=== PATIENT | male | born 1970 | race Caucasian/White ===

== ENCOUNTER 2020-01-26 17:17 | Inpatient (IN) | payer MEDICAID, OTHER ==
[2020-01-26 18:13] LABS: CARBON DIOXIDE,CO2 7.1 mmol/L (21.0-32.0)
--- NOTE | 2020-01-26 18:13 | EDM.PDOC ---
ED HPI GENERAL MEDICAL PROBLEM - General Chief Complaint: Abdominal Pain Stated Complaint: STOMACH Time Seen by Provider: 01/26/20 17:30 Source of Information: Reports: Patient History Limitations: Reports: No Limitations - History of Present Illness INITIAL COMMENTS - FREE TEXT/NARRATIVE: Notes to the emergency room with a complaint of abdominal pain for 2 months. Patient states the only reason he came in today was because his made him. The patient states that he drinks about 3 drinks of alcohol per day--hard liquor. However, according to his , the 3 drinks are 1/2 L of alcohol daily for the last 9 to 10 years. She is concerned because he is having ankle and foot swelling, yellow eyes, vomiting, sometimes blood in the vomit, no appetite and constant complaints of abdominal pain. The patient states that his only complaint is the abdominal pain and no appetite. He states he had a brown formed stool today and does so on a daily basis. No fever, dysuria, wheezing or shortness of breath. He is breathing fast on admission but he and his state that he has asthma and his flares are characterized by rapid breathing as opposed to wheezing and shortness of breath. He states he has lost about 25 pounds. 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 Abdomen Pain Score (Numeric/FACES): 5 - Related Data Allergies Allergy/AdvReac Type Severity Reaction Status Date / Time No Known Allergies Allergy Verified 01/26/20 17:35 Home Meds: Home Meds Albuterol/Ipratropium [Combivent Respimat] 4 gm IH ASDIRECTED 01/26/20 [History] Fluticasone Propion/Salmeterol [Advair 250-50 Diskus] 1 each IH ASDIRECTED 01/26/20 [History] Past Medical History HEENT History: Reports: None Cardiovascular History: Reports: None Respiratory History: Reports: Asthma Gastrointestinal History: Reports: None Genitourinary History: Reports: None Musculoskeletal History: Reports: None Neurological History: Reports: None Psychiatric History: Reports: None Endocrine/Metabolic History: Reports: None Hematologic History: Reports: None Immunologic History: Reports: None Oncologic (Cancer) History: Reports: None Dermatologic History: Reports: None - Infectious Disease History Infectious Disease History: Reports: Chicken Pox - Past Surgical History Head Surgeries/Procedures: Reports: None Social & Family History - Tobacco Use Smoking Status *Q: Never Smoker - Recreational Drug Use Recreational Drug Use: No ED ROS GENERAL - Review of Systems Review Of Systems: Comprehensive ROS is negative, except as noted in HPI. ED EXAM, GI/ABD - Physical Exam Exam: See Below Exam Limited By: No Limitations General Appearance: Alert, No Apparent Distress, Other (mild scleral icterus ) Ears: Normal External Exam Nose: Normal Inspection Throat/Mouth: Normal Inspection Head: Atraumatic, Normocephalic Neck: Normal Inspection Respiratory/Chest: No Respiratory Distress, Lungs Clear, Normal Breath Sounds, Other (tachypnea) Cardiovascular: Normal Peripheral Pulses, Regular Rate, Rhythm, No Murmur GI/Abdominal Exam: Soft, Non-Tender, Other (hypoactive BS, obese) Back Exam: Normal Inspection Neurological: Alert, Oriented, Normal Cognition Psychiatric: Normal Affect, Normal Mood Skin Exam: Warm, Dry, Intact, Normal Color, No Rash Lymphatic: No Adenopathy Course - Vital Signs Last Recorded V/S: Last Vital Signs Temp 36.4 C 01/26/20 17:32 Pulse 115 H 01/26/20 18:54 Resp 20 01/26/20 18:54 BP 120/102 H 01/26/20 18:54 Pulse Ox 97 01/26/20 18:54 - Orders/Labs/Meds Orders: Active Orders 24 hr Category Date Time Status RT Aerosol Therapy [RC] ASDIRECTED Care 01/26/20 18:28 Ordered CORONAVIRUS COVID-19 PCR PHL Stat Lab 01/26/20 19:01 Ordered ETOH [ETHANOL BLOOD MEDICAL] [CHEM] Stat Lab 01/26/20 19:01 Ordered Labs: Laboratory Tests 01/26/20 01/26/20 01/26/20 Range/Units 15:40 17:40 17:40 WBC 6.24 (4.0-11.0) K/uL RBC 4.07 L (4.50-5.90) M/uL Hgb 14.2 (13.0-17.0) g/dL Hct 42.1 (38.0-50.0) % MCV 103.4 H (80.0-98.0) fL MCH 34.9 H (27.0-32.0) pg MCHC 33.7 (31.0-37.0) g/dL RDW Std Deviation 53.7 (28.0-62.0) fl RDW Coeff of Nicholas 14 (11.0-15.0) % Plt Count 133 L (150-400) K/uL MPV 11.00 (7.40-12.00) fL Neut % (Auto) 79.4 (48.0-80.0) % Lymph % (Auto) 8.2 L (16.0-40.0) % Sheridan % (Auto) 12.0 (0.0-15.0) % Eos % (Auto) 0.2 (0.0-7.0) % Baso % (Auto) 0.2 (0.0-1.5) % Neut # (Auto) 5.0 (1.4-5.7) K/uL Lymph # (Auto) 0.5 L (0.6-2.4) K/uL Sheridan # (Auto) 0.8 (0.0-0.8) K/uL Eos # (Auto) 0.0 (0.0-0.7) K/uL Baso # (Auto) 0.0 (0.0-0.1) K/uL Nucleated RBC % 0.6 /100WBC Nucleated RBCs # 0 K/uL INR 1.13 Sodium (136-148) mmol/L Potassium (3.5-5.1) mmol/L Chloride (98-107) mmol/L Carbon Dioxide (21.0-32.0) mmol/L BUN (7.0-18.0) mg/dL Creatinine (0.8-1.3) mg/dL Est Cr Clr Drug Dosing mL/min Estimated GFR (MDRD) ml/min Glucose (74-106) mg/dL Calcium (8.5-10.1) mg/dL Total Bilirubin (0.2-1.0) mg/dL AST (15-37) IU/L ALT (14-63) IU/L Alkaline Phosphatase (46-116) U/L Total Protein (6.4-8.2) g/dL Albumin (3.4-5.0) g/dL Globulin (2.6-4.0) g/dL Albumin/Globulin Ratio (0.9-1.6) Amylase 84 (25-115) U/L Lipase (73-393) U/L 01/26/20 Range/Units 17:40 WBC (4.0-11.0) K/uL RBC (4.50-5.90) M/uL Hgb (13.0-17.0) g/dL Hct (38.0-50.0) % MCV (80.0-98.0) fL MCH (27.0-32.0) pg MCHC (31.0-37.0) g/dL RDW Std Deviation (28.0-62.0) fl RDW Coeff of Nicholas (11.0-15.0) % Plt Count (150-400) K/uL MPV (7.40-12.00) fL Neut % (Auto) (48.0-80.0) % Lymph % (Auto) (16.0-40.0) % Sheridan % (Auto) (0.0-15.0) % Eos % (Auto) (0.0-7.0) % Baso % (Auto) (0.0-1.5) % Neut # (Auto) (1.4-5.7) K/uL Lymph # (Auto) (0.6-2.4) K/uL Sheridan # (Auto) (0.0-0.8) K/uL Eos # (Auto) (0.0-0.7) K/uL Baso # (Auto) (0.0-0.1) K/uL Nucleated RBC % /100WBC Nucleated RBCs # K/uL INR Sodium 124 L (136-148) mmol/L Potassium 5.5 H (3.5-5.1) mmol/L Chloride 84 L (98-107) mmol/L Carbon Dioxide 7.1 L (21.0-32.0) mmol/L BUN 20 H (7.0-18.0) mg/dL Creatinine 2.1 H (0.8-1.3) mg/dL Est Cr Clr Drug Dosing 49.47 mL/min Estimated GFR (MDRD) 33.7 ml/min Glucose 73 L (74-106) mg/dL Calcium 7.7 L (8.5-10.1) mg/dL Total Bilirubin 4.5 H (0.2-1.0) mg/dL AST 1812 H (15-37) IU/L ALT 273 H (14-63) IU/L Alkaline Phosphatase 117 H (46-116) U/L Total Protein 7.8 (6.4-8.2) g/dL Albumin 3.7 (3.4-5.0) g/dL Globulin 4.1 H (2.6-4.0) g/dL Albumin/Globulin Ratio 0.9 (0.9-1.6) Amylase (25-115) U/L Lipase 788 H (73-393) U/L Meds: Medications Discontinued Medications Generic Name Dose Route Start Last Admin Trade Name Rosendo PRN Reason Stop Dose Admin Albuterol/Ipratropium 3 ml 01/26/20 18:28 01/26/20 18:42 Duoneb 3.0-0.5 Mg/3 Ml NEB 01/26/20 18:29 3 ml ONETIME ONE Administration Dextrose/Water 50 ml 01/26/20 19:02 Dextrose 50% In Water IVPUSH 01/26/20 19:03 ONETIME ONE Insulin Human Regular 10 unit 01/26/20 18:59 Novolin R IVPUSH 01/26/20 19:00 ONETIME ONE Protocol Sodium Bicarbonate 50 meq 01/26/20 19:02 Sodium Bicarbonate 8.4% IVPUSH 01/26/20 19:03 ONETIME ONE - Re-Assessments/Exams Free Text/Narrative Re-Assessment/Exam: 01/26/20 19:[address] Debbie Chacon. Will treat hyperkalemia and admit to inpatient services. Free Text/Narrative Re-Assessment/Exam: 01/26/20 19:[address] Irving, hospitalist service. Same will refer patient to observation with telemetry. Last alcoholic drink 0200 per patient. Departure - Departure Time of Disposition: 19:17 Disposition: Refer to Observation Condition: Good Clinical Impression: Hyperkalemia - Discharge Information Referrals: Fernanda Haskins ORTHOTIC ASSISTANT [Primary Care Provider] - Forms: ED Department Discharge Sepsis Event Note (ED) - Evaluation Sepsis Screening Result: No Definite Risk - Focused Exam Vital Signs: Vital Signs Temp Pulse Resp BP Pulse Ox 01/26/20 18:54 115 H 20 120/102 H 97 01/26/20 17:32 36.4 C 119 H 22 H 121/79 96 - My Orders Last 24 Hours: My Active Orders 01/26/20 18:28 RT Aerosol Therapy [RC] ASDIRECTED 01/26/20 19:01 CORONAVIRUS COVID-19 PCR PHL Stat ETOH [ETHANOL BLOOD MEDICAL] [CHEM] Stat - Assessment/Plan Last 24 Hours: My Active Orders 01/26/20 18:28 RT Aerosol Therapy [RC] ASDIRECTED 01/26/20 19:01 CORONAVIRUS COVID-19 PCR PHL Stat ETOH [ETHANOL BLOOD MEDICAL] [CHEM] Stat
[2020-01-26 18:27] LABS: POTASSIUM,K 5.5 mmol/L (3.5-5.1)
[2020-01-26] MEDS ORDERED: Albuterol/Ipratropium 3.0-0.5 MG/3 ML Neb Soln NEB ONE (18:28)
--- NOTE | 2020-01-26 18:32 | CT ---
Abdomen and pelvis Technique: Multiple axial sections were obtained from above the dome of the diaphragm inferiorly through the pubic symphysis. Intravenous and oral contrast has not been given. Comparison: No prior abdominal imaging is available. Findings: Visualized lung bases shows a focal density within the left base appearing slightly masslike measuring 2.1 cm. Uncertain if this is due to nodular pleural thickening or represents actual neoplastic mass. Focal density seen within the right paraspinal region most likely relating to scarring. Other parenchymal densities are seen most likely relating to scarring. Liver shows very severe fatty infiltration with mild enlargement. Small hiatal hernia is noted. Spleen appears normal. Adrenal glands show no nodule. Kidneys show no abnormal calcifications. Small high density lesion is noted off the posterior right kidney measuring 8 mm. This is statistically most likely representing hemorrhagic cyst. Pancreas shows no abnormality. Gallbladder contains no calcified gallstones. Aorta shows atherosclerotic calcification without aneurysm. No retroperitoneal adenopathy or mesenteric abnormalities are seen. No pelvic mass or adenopathy is seen. No free fluid or is appreciated. Appendix is felt to be visualized and is normal in size. Questionable bowel wall thickening is seen within portions of the transverse colon and descending colon as well as right colon. Diverticuli are seen within more distal portions of the descending colon as well as mild sigmoid diverticulosis. No evidence of diverticulitis is seen. Slight inflammatory change is seen off the cecum, uncertain if this is acute or old. No etiology is seen if this is acute. Bone window settings were reviewed which shows slight scoliosis and mild scattered degenerative change within the spine. No acute osseous finding is appreciated. Impression: 1. Mild bowel wall thickening suggested within portions of the descending, transverse and right colon suspicious for colitis. 2. Minimal inflammatory change off the cecum. No etiology is seen if this is acute and this may be chronic. 3. Severe fatty infiltration within the liver. 4. Nodular density within the left lung base, as mentioned above uncertain if this is due to nodular area of parenchymal scarring or represents actual neoplastic nodule. PET scan would be helpful to differentiate. 5. Other findings as noted above which are believed to be nonacute. Diagnostic code #3 This report was dictated in MDT
--- NOTE | 2020-01-26 18:53 | CR ---
Chest: 2 views of the chest were obtained. Comparison: No prior chest imaging is available. Heart size at the upper limits of normal. Upper mediastinum is normal. Slight parenchymal density with the left base. This may represent atelectasis or very early pneumonia. Lungs otherwise are clear. Slight degenerative change is seen within the spine. Impression: 1. Mild left basilar atelectasis versus minimal area of pneumonia. 2. Heart size at the upper limits of normal. 3. Nothing acute is otherwise seen. Diagnostic code #3 This report was dictated in MDT
[2020-01-26] MEDS ORDERED: Insulin Regular, Human 100 Units/ML 10 ML Vial IVPUSH ONE (18:59)
[2020-01-26] MEDS ORDERED: 50% Dextrose in Water 50 ML Syringe IVPUSH ONE (19:02)
[2020-01-26] MEDS ORDERED: Sodium Bicarbonate 8.4% 50 MEQ/50 ML Syringe IVPUSH ONE (19:02)
[2020-01-26] MEDS ORDERED: Morphine 10 MG/ML Syringe IVPUSH PRN (19:21)
[2020-01-26] MEDS ORDERED: Ondansetron 4 MG/2 ML SDV IVPUSH PRN (19:21)
[2020-01-26] MEDS ORDERED: MVI, Adult with Vitamin K 10 ML, Thiamine 100 MG, Folic Acid 1 MG in Sodium Chloride 0.... IV ONE ×4 (19:32)
--- NOTE | 2020-01-26 19:38 | PCM.HP.2 ---
H&P History of Present Illness - General Date of Service: 01/26/20 Admit Problem/Dx: Admission Diagnosis/Problem Admission Diagnosis/Problem Hyperkalemia - History of Present Illness Initial Comments - Free Text/Narative: 49 y/o M with PMH of alcohol abuse, asthma, comes to the emergency room with a complaint of chronic abdominal pain for 2 months. Patient states that he came in today because his insisted him to.. The patient states that he drinks about 3 drinks of alcohol per day which is mostly hard liquor. However, according to his , the 3 drinks are 1/2 L of alcohol daily for the last 9 to 10 years. Per patient is having ankle and foot swelling, yellow eyes, vomiting, sometimes blood in the vomit, no appetite and constant complaints of abdominal pain. The patient states that his only complaint is the abdominal pain and no appetite. He states he had a brown formed stool today and does so on a daily basis. No fever, dysuria, wheezing or shortness of breath. Denied any chest pain, n/v, syncope. In the ER his labs were significant for liver dysfunction, also creatinine was elevated 2.1, Potassium was 5.5, patient received 10 units of subCut insulin and dextrose, CT abdomen showed severe fatty liver, no gallstones. Patient was admitted for acute alcoholic hepatitis and alc ohol detox. Abdomen Pain Score (Numeric/FACES): 5 - Related Data Allergies/Adverse Reactions: Allergies Allergy/AdvReac Type Severity Reaction Status Date / Time No Known Allergies Allergy Verified 01/26/20 17:35 Home Medications: Home Meds Albuterol/Ipratropium [Combivent Respimat] 4 gm IH ASDIRECTED 01/26/20 [History] Fluticasone Propion/Salmeterol [Advair 250-50 Diskus] 1 each IH ASDIRECTED 01/26/20 [History] Past Medical History HEENT History: Reports: None Cardiovascular History: Reports: None Respiratory History: Reports: Asthma Gastrointestinal History: Reports: None Genitourinary History: Reports: None Musculoskeletal History: Reports: None Neurological History: Reports: None Psychiatric History: Reports: None Endocrine/Metabolic History: Reports: None Hematologic History: Reports: None Immunologic History: Reports: None Oncologic (Cancer) History: Reports: None Dermatologic History: Reports: None - Infectious Disease History Infectious Disease History: Reports: Chicken Pox - Past Surgical History Head Surgeries/Procedures: Reports: None Social & Family History - Tobacco Use Smoking Status *Q: Never Smoker - Recreational Drug Use Recreational Drug Use: No H&P Review of Systems - Review of Systems: Review Of Systems: See Below General: Reports: Malaise, Fatigue. Denies: Fever, Chills HEENT: Denies: Contact Lenses, Dysphasia Gastrointestinal: Reports: Abdominal Pain, Anorexia, Black Stool, Flatus, Nausea, Vomiting. Denies: Bloody Stool, Constipation, Diarrhea, Difficulty Swallowing, Hematemesis, Stool Incontinence Genitourinary: Denies: Burning, Pain Musculoskeletal: Denies: Arm Pain, Back Pain, Hand Pain Skin: Reports: Jaundice. Denies: Mottled, Pallor, Diaphoresis Psychiatric: Denies: Depression, Mood Lability, Anxiety Neurological: Denies: Dizziness, Headache, Numbness Exam - Exam Exam: See Below - Vital Signs Vital Signs: Last Vital Signs Temp 36.4 C 01/26/20 17:32 Pulse 110 H 01/26/20 19:13 Resp 20 01/26/20 18:54 BP 118/80 01/26/20 19:13 Pulse Ox 97 01/26/20 19:13 Weight: 106.8 kg - Exam Quality Assessment: Supplemental Oxygen General: Alert, Oriented HEENT: Conjunctiva Clear, Scleral Icterus Neck: Supple Lungs: Clear to Auscultation, Normal Respiratory Effort Cardiovascular: Regular Rate, Regular Rhythm, Normal S1, Normal S2 GI/Abdominal Exam: Normal Bowel Sounds, Soft, Distended, Hepatomegaly. No: Guarding, Rigid - Patient Data Lab Results Last 24 hrs: Laboratory Results - last 24 hr 01/26/20 01/26/20 01/26/20 Range/Units 15:40 17:40 17:40 WBC 6.24 (4.0-11.0) K/uL RBC 4.07 L (4.50-5.90) M/uL Hgb 14.2 (13.0-17.0) g/dL Hct 42.1 (38.0-50.0) % MCV 103.4 H (80.0-98.0) fL MCH 34.9 H (27.0-32.0) pg MCHC 33.7 (31.0-37.0) g/dL RDW Std Deviation 53.7 (28.0-62.0) fl RDW Coeff of Nicholas 14 (11.0-15.0) % Plt Count 133 L (150-400) K/uL MPV 11.00 (7.40-12.00) fL Neut % (Auto) 79.4 (48.0-80.0) % Lymph % (Auto) 8.2 L (16.0-40.0) % Taylor % (Auto) 12.0 (0.0-15.0) % Eos % (Auto) 0.2 (0.0-7.0) % Baso % (Auto) 0.2 (0.0-1.5) % Neut # (Auto) 5.0 (1.4-5.7) K/uL Lymph # (Auto) 0.5 L (0.6-2.4) K/uL Taylor # (Auto) 0.8 (0.0-0.8) K/uL Eos # (Auto) 0.0 (0.0-0.7) K/uL Baso # (Auto) 0.0 (0.0-0.1) K/uL Nucleated RBC % 0.6 /100WBC Nucleated RBCs # 0 K/uL INR 1.13 VBG pH (7.31-7.41) VBG pCO2 (35-45) mmHG VBG pO2 (30-40) mmHG VBG HCO3 (22-30) mEq/L VBG Total CO2 (41-51) mmol/L VBG Base Excess (-3.0-3.0) Sodium (136-148) mmol/L Potassium (3.5-5.1) mmol/L Chloride (98-107) mmol/L Carbon Dioxide (21.0-32.0) mmol/L BUN (7.0-18.0) mg/dL Creatinine (0.8-1.3) mg/dL Est Cr Clr Drug Dosing mL/min Estimated GFR (MDRD) ml/min Glucose (74-106) mg/dL Calcium (8.5-10.1) mg/dL Total Bilirubin (0.2-1.0) mg/dL AST (15-37) IU/L ALT (14-63) IU/L Alkaline Phosphatase (46-116) U/L Total Protein (6.4-8.2) g/dL Albumin (3.4-5.0) g/dL Globulin (2.6-4.0) g/dL Albumin/Globulin Ratio (0.9-1.6) Amylase 84 (25-115) U/L Lipase (73-393) U/L Ethyl Alcohol mg/dL COVID-19 (EMMA) (NEGATIVE) 01/26/20 01/26/20 01/26/20 Range/Units 17:40 17:40 19:05 WBC (4.0-11.0) K/uL RBC (4.50-5.90) M/uL Hgb (13.0-17.0) g/dL Hct (38.0-50.0) % MCV (80.0-98.0) fL MCH (27.0-32.0) pg MCHC (31.0-37.0) g/dL RDW Std Deviation (28.0-62.0) fl RDW Coeff of Nicholas (11.0-15.0) % Plt Count (150-400) K/uL MPV (7.40-12.00) fL Neut % (Auto) (48.0-80.0) % Lymph % (Auto) (16.0-40.0) % Taylor % (Auto) (0.0-15.0) % Eos % (Auto) (0.0-7.0) % Baso % (Auto) (0.0-1.5) % Neut # (Auto) (1.4-5.7) K/uL Lymph # (Auto) (0.6-2.4) K/uL Taylor # (Auto) (0.0-0.8) K/uL Eos # (Auto) (0.0-0.7) K/uL Baso # (Auto) (0.0-0.1) K/uL Nucleated RBC % /100WBC Nucleated RBCs # K/uL INR VBG pH (7.31-7.41) VBG pCO2 (35-45) mmHG VBG pO2 (30-40) mmHG VBG HCO3 (22-30) mEq/L VBG Total CO2 (41-51) mmol/L VBG Base Excess (-3.0-3.0) Sodium 124 L (136-148) mmol/L Potassium 5.5 H (3.5-5.1) mmol/L Chloride 84 L (98-107) mmol/L Carbon Dioxide 7.1 L (21.0-32.0) mmol/L BUN 20 H (7.0-18.0) mg/dL Creatinine 2.1 H (0.8-1.3) mg/dL Est Cr Clr Drug Dosing 49.47 mL/min Estimated GFR (MDRD) 33.7 ml/min Glucose 73 L (74-106) mg/dL Calcium 7.7 L (8.5-10.1) mg/dL Total Bilirubin 4.5 H (0.2-1.0) mg/dL AST 1812 H (15-37) IU/L ALT 273 H (14-63) IU/L Alkaline Phosphatase 117 H (46-116) U/L Total Protein 7.8 (6.4-8.2) g/dL Albumin 3.7 (3.4-5.0) g/dL Globulin 4.1 H (2.6-4.0) g/dL Albumin/Globulin Ratio 0.9 (0.9-1.6) Amylase (25-115) U/L Lipase 788 H (73-393) U/L Ethyl Alcohol 294 mg/dL COVID-19 (EMMA) NEGATIVE (NEGATIVE) 01/26/20 Range/Units 19:33 WBC (4.0-11.0) K/uL RBC (4.50-5.90) M/uL Hgb (13.0-17.0) g/dL Hct (38.0-50.0) % MCV (80.0-98.0) fL MCH (27.0-32.0) pg MCHC (31.0-37.0) g/dL RDW Std Deviation (28.0-62.0) fl RDW Coeff of Nicholas (11.0-15.0) % Plt Count (150-400) K/uL MPV (7.40-12.00) fL Neut % (Auto) (48.0-80.0) % Lymph % (Auto) (16.0-40.0) % Taylor % (Auto) (0.0-15.0) % Eos % (Auto) (0.0-7.0) % Baso % (Auto) (0.0-1.5) % Neut # (Auto) (1.4-5.7) K/uL Lymph # (Auto) (0.6-2.4) K/uL Taylor # (Auto) (0.0-0.8) K/uL Eos # (Auto) (0.0-0.7) K/uL Baso # (Auto) (0.0-0.1) K/uL Nucleated RBC % /100WBC Nucleated RBCs # K/uL INR VBG pH 7.05 L (7.31-7.41) VBG pCO2 20 L (35-45) mmHG VBG pO2 46 H (30-40) mmHG VBG HCO3 6 L (22-30) mEq/L VBG Total CO2 5 L (41-51) mmol/L VBG Base Excess -23.3 L (-3.0-3.0) Sodium (136-148) mmol/L Potassium (3.5-5.1) mmol/L Chloride (98-107) mmol/L Carbon Dioxide (21.0-32.0) mmol/L BUN (7.0-18.0) mg/dL Creatinine (0.8-1.3) mg/dL Est Cr Clr Drug Dosing mL/min Estimated GFR (MDRD) ml/min Glucose (74-106) mg/dL Calcium (8.5-10.1) mg/dL Total Bilirubin (0.2-1.0) mg/dL AST (15-37) IU/L ALT (14-63) IU/L Alkaline Phosphatase (46-116) U/L Total Protein (6.4-8.2) g/dL Albumin (3.4-5.0) g/dL Globulin (2.6-4.0) g/dL Albumin/Globulin Ratio (0.9-1.6) Amylase (25-115) U/L Lipase (73-393) U/L Ethyl Alcohol mg/dL COVID-19 ([facility]) (NEGATIVE) Result Diagrams: 01/26/20 17:40 01/26/20 17:40 Sepsis Event Note - Evaluation Sepsis Screening Result: No Definite Risk - Focused Exam Vital Signs: Vital Signs Temp Pulse Resp BP Pulse Ox 01/26/20 19:13 110 H 118/80 97 08/04/20 18:54 115 H 20 120/102 H 97 01/26/20 18:29 109 H 21 H 120/64 99 01/26/20 17:32 36.4 C 119 H 22 H 121/79 96 Date Exam was Performed: 01/26/20 Time Exam was Performed: 22:47 - Problem List (1) Transaminitis SNOMED Code(s): 224159755, 570968363 ICD Code: R74.0 - NONSPEC ELEV OF LEVELS OF TRANSAMNS & LACTIC ACID DEHYDRGNSE Status: Acute Current Visit: Yes (2) Alcohol abuse SNOMED Code(s): 52191491 ICD Code: F10.10 - ALCOHOL ABUSE, UNCOMPLICATED Status: Acute Current Visit: Yes (3) Hyperkalemia SNOMED Code(s): 74279476 ICD Code: E87.5 - HYPERKALEMIA Status: Acute Current Visit: Yes Problem List Initiated/Reviewed/Updated: Yes Orders Last 24hrs: Active Orders 24 hr Category Date Time Status Patient Status [ADT] Stat ADT 01/26/20 19:14 Active Ambulate [RC] ASDIRECTED Care 01/26/20 19:21 Ordered Antiembolic Devices [RC] PER UNIT ROUTINE Care 01/26/20 19:23 Ordered Intake and Output [RC] QSHIFT Care 01/26/20 19:22 Ordered Oxygen Therapy [RC] PRN Care 01/26/20 19:21 Ordered Oxygen Therapy [RC] PRN Care 01/26/20 19:21 Ordered Pulse Oximetry [RC] PRN Care 01/26/20 19:21 Ordered RT Aerosol Therapy [RC] ASDIRECTED Care 01/26/20 18:28 Active RT Aerosol Therapy [RC] ASDIRECTED Care 01/26/20 19:24 Ordered Telemetry Monitoring [Cardiac Monitoring] [RC] . Care 01/26/20 19:36 Active DIRECTED VTE/DVT Education [RC] PER UNIT ROUTINE Care 01/26/20 19:21 Ordered VTE/DVT Education [RC] PER UNIT ROUTINE Care 01/26/20 19:21 Ordered Vital Signs [RC] Q4H Care 01/26/20 19:21 Ordered Nothing per Oral After Midnight Diet [DIET] Diet 01/26/20 Dinner Ordered AMMONIA VENOUS [CHEM] Stat Lab 01/26/20 19:27 Ordered BASIC METABOLIC PANEL,BMP [CHEM] Routine Lab 01/26/20 23:00 Ordered CBC WITH AUTO DIFF [HEME] AM Lab 01/27/20 05:11 Ordered CMP [COMPREHENSIVE METABOLIC PN,CMP] [CHEM] AM Lab 01/27/20 05:11 Ordered HEPATITIS PANEL (4) [REF] Routine Lab 01/26/20 19:36 Ordered MAGNESIUM [CHEM] AM Lab 01/27/20 05:11 Ordered PHOSPHORUS [CHEM] AM Lab 01/27/20 05:11 Ordered Albuterol/Ipratropium [DuoNeb 3.0-0.5 MG/3 ML] Med 01/26/20 19:21 Ordered 3 ml NEB Q4HRRT PRN Folic Acid Med 01/27/20 09:00 Ordered 1 mg IV DAILY LORazepam [Ativan] Med 01/26/20 19:33 Ordered See Protocol IVPUSH Q4H PRN Lactated Ringers @ 125 MLS/HR(1000ml) Med 01/26/20 19:30 Ordered Lactated Ringers [Ringers, Lactated] 1,000 ml IV ASDIRECTED MVI, Adult with Vitamin K [Infuvite Adult] 10 ml Med 01/26/20 19:32 Ordered Thiamine [Vitamin B-1] 100 mg Folic Acid 1 mg Sodium Chloride 0.9% [Normal Saline] 1,000 ml IV ONETIME Morphine Med 01/26/20 19:21 Ordered 1 mg IVPUSH Q4H PRN Ondansetron [Zofran] Med 01/26/20 19:21 Ordered 4 mg IVPUSH Q4H PRN Pantoprazole [ProTONIX IV] 40 mg Med 01/26/20 21:00 Ordered Sodium Chloride 0.9% [Normal Saline] 10 ml IV BID Thiamine [Vitamin B-1] 100 mg Med 01/27/20 09:00 Ordered Sodium Chloride 0.9% [Normal Saline] 100 ml IV DAILY diazePAM [Valium] Med 01/26/20 22:00 Ordered 5 mg PO TID Sequential Compression Device [OM.PC] Per Unit Routine Oth 01/26/20 19:22 Ordered Resuscitation Status Routine Resus Stat 01/26/20 19:21 Ordered Medication Orders Albuterol/Ipratropium (Duoneb 3.0-0.5 Mg/3 Ml) 3 ml NEB Q4HRRT PRN PRN Reason: Shortness Of Breath/wheezing Diazepam (Valium.) 5 mg PO TID HU Folic Acid (Folic Acid) 1 mg IV DAILY HU Lactated Ringer's (Ringers, Lactated) 1,000 mls @ 125 mls/hr IV ASDIRECTED HU Pantoprazole Sodium 40 mg/ (Sodium Chloride) 10 mls @ 300 mls/hr IV BID HU Multivitamins/Minerals 10 ml/Thiamine HCl 100 mg/ Folic Acid 1 mg/ Sodium Chloride 1,011.2 mls @ 200 mls/hr IV ONETIME ONE Stop: 01/27/20 00:35 Thiamine HCl 100 mg/ Sodium (Chloride) 101 mls @ 202 mls/hr IV DAILY HU Lorazepam (Ativan) 0 mg IVPUSH Q4H PRN; Protocol PRN Reason: Withdrawal Symptoms Morphine Sulfate (Morphine) 1 mg IVPUSH Q4H PRN PRN Reason: Pain (severe 7-10) Stop: 01/27/20 19:23 Ondansetron HCl (Zofran) 4 mg IVPUSH Q4H PRN PRN Reason: Nausea/Vomiting Assessment/Plan Comment:: 49 y/o Admoitted for possible alcoholic hepatitis Admit to tele start IV fluids Keep npo for now IV PPI BID Zofran PRN N/V IV Ativan per CIWAA PO Valium Trend LFTs daily DuoNebs as needed Thiamine and folic acid counseled about alcohol cessation in detail
[2020-01-26] MEDS: Albuterol/Ipratropium 3.0-0.5 MG/3 ML Neb Soln NEB PRN (21:21)
[2020-01-26] MEDS: Lactated Ringers 1,000 ML IV SCH (21:28)
[2020-01-26] MEDS: Pantoprazole 40 MG in Sodium Chloride 0.9% 10 ML IV SCH (21:30)
[2020-01-26] MEDS: Diazepam 5 MG Tab PO SCH (21:34)
[2020-01-26 23:39] LABS: CARBON DIOXIDE,CO2 8.3 mmol/L (21.0-32.0); POTASSIUM,K 5.3 mmol/L (3.5-5.1)
[2020-01-27] MEDS: LORazepam 2 MG/ML SDV IVPUSH PRN ×4 (00:07→06:49)
[2020-01-27] MEDS: Albuterol/Ipratropium 3.0-0.5 MG/3 ML Neb Soln NEB PRN ×2 (01:48→05:56)
[2020-01-27] MEDS: Lactated Ringers 1,000 ML IV SCH ×2 (05:36→16:08)
[2020-01-27] MEDS: Diazepam 5 MG Tab PO SCH ×3 (05:38→20:59)
[2020-01-27 06:09] LABS: CARBON DIOXIDE,CO2 11.5 mmol/L (21.0-32.0)
[2020-01-27] MEDS ORDERED: Magnesium Sulfate/Water 2 GM in Premix Bag 1 BAG IV ONE (07:50)
[2020-01-27] MEDS: Pantoprazole 40 MG in Sodium Chloride 0.9% 10 ML IV SCH ×2 (08:16→20:58)
[2020-01-27] MEDS: Folic Acid 50 MG/10 ML MDV IV SCH (08:27)
--- NOTE | 2020-01-27 08:38 | PCM.PN ---
<Edy Neri M - Last Filed: 01/27/20 13:05> - General Info Date of Service: 01/27/20 Subjective Update: Patient reports mild abdominal pain. Denies any fevers, chills, nausea, vomiting or shortness of breath. - Patient Data Vitals - Most Recent: Last Vital Signs Temp 36.1 C 01/27/20 07:52 Pulse 130 H 01/27/20 07:52 Resp 19 01/27/20 07:52 BP 132/85 01/27/20 07:52 Pulse Ox 95 01/27/20 07:52 Weight - Most Recent: 106.8 kg I&O - Last 24 Hours: Intake & Output 01/26/20 01/27/20 01/27/20 22:59 06:59 14:59 Intake Total 10 1990 Output Total 700 Balance 10 1290 Lab Results Last 24 Hours: Laboratory Results - last 24 hr 01/26/20 01/26/20 01/26/20 Range/Units 15:40 17:40 17:40 WBC 6.24 (4.0-11.0) K/uL RBC 4.07 L (4.50-5.90) M/uL Hgb 14.2 (13.0-17.0) g/dL Hct 42.1 (38.0-50.0) % MCV 103.4 H (80.0-98.0) fL MCH 34.9 H (27.0-32.0) pg MCHC 33.7 (31.0-37.0) g/dL RDW Std Deviation 53.7 (28.0-62.0) fl RDW Coeff of Nicholas 14 (11.0-15.0) % Plt Count 133 L (150-400) K/uL MPV 11.00 (7.40-12.00) fL Neut % (Auto) 79.4 (48.0-80.0) % Lymph % (Auto) 8.2 L (16.0-40.0) % [place] % (Auto) 12.0 (0.0-15.0) % Eos % (Auto) 0.2 (0.0-7.0) % Baso % (Auto) 0.2 (0.0-1.5) % Neut # (Auto) 5.0 (1.4-5.7) K/uL Lymph # (Auto) 0.5 L (0.6-2.4) K/uL [place] # (Auto) 0.8 (0.0-0.8) K/uL Eos # (Auto) 0.0 (0.0-0.7) K/uL Baso # (Auto) 0.0 (0.0-0.1) K/uL Nucleated RBC % 0.6 /100WBC Nucleated RBCs # 0 K/uL INR 1.13 VBG pH (7.31-7.41) VBG pCO2 (35-45) mmHG VBG pO2 (30-40) mmHG VBG HCO3 (22-30) mEq/L VBG Total CO2 (41-51) mmol/L VBG Base Excess (-3.0-3.0) Sodium (136-148) mmol/L Potassium (3.5-5.1) mmol/L Chloride (98-107) mmol/L Carbon Dioxide (21.0-32.0) mmol/L BUN (7.0-18.0) mg/dL Creatinine (0.8-1.3) mg/dL Est Cr Clr Drug Dosing mL/min Estimated GFR (MDRD) ml/min Glucose (74-106) mg/dL POC Glucose (60-110) mg/dL Calcium (8.5-10.1) mg/dL Phosphorus (2.6-4.7) mg/dL Magnesium (1.8-2.4) mg/dL Total Bilirubin (0.2-1.0) mg/dL AST (15-37) IU/L ALT (14-63) IU/L Alkaline Phosphatase (46-116) U/L Ammonia (19-54) ug/dL Total Protein (6.4-8.2) g/dL Albumin (3.4-5.0) g/dL Globulin (2.6-4.0) g/dL Albumin/Globulin Ratio (0.9-1.6) Amylase 84 (25-115) U/L Lipase (73-393) U/L Ethyl Alcohol mg/dL COVID-19 (EMMA) (NEGATIVE) 01/26/20 01/26/20 01/26/20 Range/Units 17:40 17:40 19:05 WBC (4.0-11.0) K/uL RBC (4.50-5.90) M/uL Hgb (13.0-17.0) g/dL Hct (38.0-50.0) % MCV (80.0-98.0) fL MCH (27.0-32.0) pg MCHC (31.0-37.0) g/dL RDW Std Deviation (28.0-62.0) fl RDW Coeff of Nicholas (11.0-15.0) % Plt Count (150-400) K/uL MPV (7.40-12.00) fL Neut % (Auto) (48.0-80.0) % Lymph % (Auto) (16.0-40.0) % [place] % (Auto) (0.0-15.0) % Eos % (Auto) (0.0-7.0) % Baso % (Auto) (0.0-1.5) % Neut # (Auto) (1.4-5.7) K/uL Lymph # (Auto) (0.6-2.4) K/uL [place] # (Auto) (0.0-0.8) K/uL Eos # (Auto) (0.0-0.7) K/uL Baso # (Auto) (0.0-0.1) K/uL Nucleated RBC % /100WBC Nucleated RBCs # K/uL INR VBG pH (7.31-7.41) VBG pCO2 (35-45) mmHG VBG pO2 (30-40) mmHG VBG HCO3 (22-30) mEq/L VBG Total CO2 (41-51) mmol/L VBG Base Excess (-3.0-3.0) Sodium 124 L (136-148) mmol/L Potassium 5.5 H (3.5-5.1) mmol/L Chloride 84 L (98-107) mmol/L Carbon Dioxide 7.1 L (21.0-32.0) mmol/L BUN 20 H (7.0-18.0) mg/dL Creatinine 2.1 H (0.8-1.3) mg/dL Est Cr Clr Drug Dosing 49.47 mL/min Estimated GFR (MDRD) 33.7 ml/min Glucose 73 L (74-106) mg/dL POC Glucose (60-110) mg/dL Calcium 7.7 L (8.5-10.1) mg/dL Phosphorus (2.6-4.7) mg/dL Magnesium (1.8-2.4) mg/dL Total Bilirubin 4.5 H (0.2-1.0) mg/dL AST 1812 H (15-37) IU/L ALT 273 H (14-63) IU/L Alkaline Phosphatase 117 H (46-116) U/L Ammonia (19-54) ug/dL Total Protein 7.8 (6.4-8.2) g/dL Albumin 3.7 (3.4-5.0) g/dL Globulin 4.1 H (2.6-4.0) g/dL Albumin/Globulin Ratio 0.9 (0.9-1.6) Amylase (25-115) U/L Lipase 788 H (73-393) U/L Ethyl Alcohol 294 mg/dL COVID-19 (EMMA) NEGATIVE (NEGATIVE) 01/26/20 01/26/20 01/26/20 Range/Units 19:33 19:33 19:49 WBC (4.0-11.0) K/uL RBC (4.50-5.90) M/uL Hgb (13.0-17.0) g/dL Hct (38.0-50.0) % MCV (80.0-98.0) fL MCH (27.0-32.0) pg MCHC (31.0-37.0) g/dL RDW Std Deviation (28.0-62.0) fl RDW Coeff of Nicholas (11.0-15.0) % Plt Count (150-400) K/uL MPV (7.40-12.00) fL Neut % (Auto) (48.0-80.0) % Lymph % (Auto) (16.0-40.0) % [place] % (Auto) (0.0-15.0) % Eos % (Auto) (0.0-7.0) % Baso % (Auto) (0.0-1.5) % Neut # (Auto) (1.4-5.7) K/uL Lymph # (Auto) (0.6-2.4) K/uL [place] # (Auto) (0.0-0.8) K/uL Eos # (Auto) (0.0-0.7) K/uL Baso # (Auto) (0.0-0.1) K/uL Nucleated RBC % /100WBC Nucleated RBCs # K/uL INR VBG pH 7.05 L (7.31-7.41) VBG pCO2 20 L (35-45) mmHG VBG pO2 46 H (30-40) mmHG VBG HCO3 6 L (22-30) mEq/L VBG Total CO2 5 L (41-51) mmol/L VBG Base Excess -23.3 L (-3.0-3.0) Sodium (136-148) mmol/L Potassium (3.5-5.1) mmol/L Chloride (98-107) mmol/L Carbon Dioxide (21.0-32.0) mmol/L BUN (7.0-18.0) mg/dL Creatinine (0.8-1.3) mg/dL Est Cr Clr Drug Dosing mL/min Estimated GFR (MDRD) ml/min Glucose (74-106) mg/dL POC Glucose 83 (60-110) mg/dL Calcium (8.5-10.1) mg/dL Phosphorus (2.6-4.7) mg/dL Magnesium (1.8-2.4) mg/dL Total Bilirubin (0.2-1.0) mg/dL AST (15-37) IU/L ALT (14-63) IU/L Alkaline Phosphatase (46-116) U/L Ammonia <17 L (19-54) ug/dL Total Protein (6.4-8.2) g/dL Albumin (3.4-5.0) g/dL Globulin (2.6-4.0) g/dL Albumin/Globulin Ratio (0.9-1.6) Amylase (25-115) U/L Lipase (73-393) U/L Ethyl Alcohol mg/dL COVID-19 (EMMA) (NEGATIVE) 01/26/20 01/26/20 01/27/20 Range/Units 20:34 23:23 05:24 WBC 5.50 (4.0-11.0) K/uL RBC 3.65 L (4.50-5.90) M/uL Hgb 12.5 L (13.0-17.0) g/dL Hct 37.0 L (38.0-50.0) % MCV 101.4 H (80.0-98.0) fL MCH 34.2 H (27.0-32.0) pg MCHC 33.8 (31.0-37.0) g/dL RDW Std Deviation 52.6 (28.0-62.0) fl RDW Coeff of Nicholas 14 (11.0-15.0) % Plt Count 84 L (150-400) K/uL MPV 11.60 (7.40-12.00) fL Neut % (Auto) 76.9 (48.0-80.0) % Lymph % (Auto) 10.5 L (16.0-40.0) % [place] % (Auto) 12.4 (0.0-15.0) % Eos % (Auto) 0.0 (0.0-7.0) % Baso % (Auto) 0.2 (0.0-1.5) % Neut # (Auto) 4.2 (1.4-5.7) K/uL Lymph # (Auto) 0.6 (0.6-2.4) K/uL [place] # (Auto) 0.7 (0.0-0.8) K/uL Eos # (Auto) 0.0 (0.0-0.7) K/uL Baso # (Auto) 0.0 (0.0-0.1) K/uL Nucleated RBC % 0.3 /100WBC Nucleated RBCs # 0 K/uL INR VBG pH (7.31-7.41) VBG pCO2 (35-45) mmHG VBG pO2 (30-40) mmHG VBG HCO3 (22-30) mEq/L VBG Total CO2 (41-51) mmol/L VBG Base Excess (-3.0-3.0) Sodium 122 L (136-148) mmol/L Potassium 5.3 H (3.5-5.1) mmol/L Chloride 85 L (98-107) mmol/L Carbon Dioxide 8.3 L (21.0-32.0) mmol/L BUN 23 H (7.0-18.0) mg/dL Creatinine 1.9 H (0.8-1.3) mg/dL Est Cr Clr Drug Dosing 54.68 mL/min Estimated GFR (MDRD) 37.9 ml/min Glucose 89 (74-106) mg/dL POC Glucose 132 H (60-110) mg/dL Calcium 7.6 L (8.5-10.1) mg/dL Phosphorus (2.6-4.7) mg/dL Magnesium (1.8-2.4) mg/dL Total Bilirubin (0.2-1.0) mg/dL AST (15-37) IU/L ALT (14-63) IU/L Alkaline Phosphatase (46-116) U/L Ammonia (19-54) ug/dL Total Protein (6.4-8.2) g/dL Albumin (3.4-5.0) g/dL Globulin (2.6-4.0) g/dL Albumin/Globulin Ratio (0.9-1.6) Amylase (25-115) U/L Lipase (73-393) U/L Ethyl Alcohol mg/dL COVID-19 (EMMA) (NEGATIVE) 01/27/20 01/27/20 01/27/20 Range/Units 05:24 05:24 07:57 WBC (4.0-11.0) K/uL RBC (4.50-5.90) M/uL Hgb (13.0-17.0) g/dL Hct (38.0-50.0) % MCV (80.0-98.0) fL MCH (27.0-32.0) pg MCHC (31.0-37.0) g/dL RDW Std Deviation (28.0-62.0) fl RDW Coeff of Nicholas (11.0-15.0) % Plt Count (150-400) K/uL MPV (7.40-12.00) fL Neut % (Auto) (48.0-80.0) % Lymph % (Auto) (16.0-40.0) % [place] % (Auto) (0.0-15.0) % Eos % (Auto) (0.0-7.0) % Baso % (Auto) (0.0-1.5) % Neut # (Auto) (1.4-5.7) K/uL Lymph # (Auto) (0.6-2.4) K/uL [place] # (Auto) (0.0-0.8) K/uL Eos # (Auto) (0.0-0.7) K/uL Baso # (Auto) (0.0-0.1) K/uL Nucleated RBC % /100WBC Nucleated RBCs # K/uL INR 1.31 VBG pH (7.31-7.41) VBG pCO2 (35-45) mmHG VBG pO2 (30-40) mmHG VBG HCO3 (22-30) mEq/L VBG Total CO2 (41-51) mmol/L VBG Base Excess (-3.0-3.0) Sodium 124 L (136-148) mmol/L Potassium 5.0 (3.5-5.1) mmol/L Chloride 87 L (98-107) mmol/L Carbon Dioxide 11.5 L (21.0-32.0) mmol/L BUN 25 H (7.0-18.0) mg/dL Creatinine 1.5 H (0.8-1.3) mg/dL Est Cr Clr Drug Dosing 69.26 mL/min Estimated GFR (MDRD) 49.7 ml/min Glucose 96 (74-106) mg/dL POC Glucose (60-110) mg/dL Calcium 7.5 L (8.5-10.1) mg/dL Phosphorus 4.4 (2.6-4.7) mg/dL Magnesium 1.4 L (1.8-2.4) mg/dL Total Bilirubin 5.2 H (0.2-1.0) mg/dL AST 1922 H (15-37) IU/L ALT 299 H (14-63) IU/L Alkaline Phosphatase 103 (46-116) U/L Ammonia (19-54) ug/dL Total Protein 6.8 (6.4-8.2) g/dL Albumin 3.3 L (3.4-5.0) g/dL Globulin 3.5 (2.6-4.0) g/dL Albumin/Globulin Ratio 0.9 (0.9-1.6) Amylase (25-115) U/L Lipase 613 H (73-393) U/L Ethyl Alcohol mg/dL COVID-19 (EMMA) (NEGATIVE) Med Orders - Current: Current Medications Albuterol/Ipratropium (Duoneb 3.0-0.5 Mg/3 Ml) 3 ml NEB Q4HRRT PRN PRN Reason: Shortness Of Breath/wheezing Last Admin: 01/27/20 05:56 Dose: 3 ml Documented by: Diazepam (Valium.) 5 mg PO TID [facility] Last Admin: 01/27/20 05:38 Dose: 5 mg Documented by: Folic Acid (Folic Acid) 1 mg IV DAILY [facility] Last Admin: 01/27/20 08:27 Dose: 1 mg Documented by: Lactated Ringer's (Ringers, Lactated) 1,000 mls @ 125 mls/hr IV ASDIRECTED [facility] Last Admin: 01/27/20 05:36 Dose: 125 mls/hr Documented by: Pantoprazole Sodium 40 mg/ (Sodium Chloride) 10 mls @ 300 mls/hr IV BID [facility] Last Admin: 01/27/20 08:16 Dose: 300 mls/hr Documented by: Thiamine HCl 100 mg/ Sodium (Chloride) 101 mls @ 202 mls/hr IV DAILY [facility] Magnesium Sulfate 2 gm/ Premix 50 mls @ 50 mls/hr IV ONETIME ONE Stop: 01/27/20 08:49 Last Admin: 01/27/20 08:12 Dose: 50 mls/hr Documented by: Lorazepam (Ativan) 0 mg IVPUSH Q4H PRN; Protocol PRN Reason: Withdrawal Symptoms Last Admin: 01/27/20 06:49 Dose: 2 mg Documented by: Morphine Sulfate (Morphine) 1 mg IVPUSH Q4H PRN PRN Reason: Pain (severe 7-10) Ondansetron HCl (Zofran) 4 mg IVPUSH Q4H PRN PRN Reason: Nausea/Vomiting Last Admin: 01/27/20 04:24 Dose: 4 mg Documented by: Discontinued Medications Albuterol/Ipratropium (Duoneb 3.0-0.5 Mg/3 Ml) 3 ml NEB ONETIME ONE Stop: 01/26/20 18:29 Last Admin: 01/26/20 18:42 Dose: 3 ml Documented by: Dextrose/Water (Dextrose 50% In Water) 50 ml IVPUSH ONETIME ONE Stop: 01/26/20 19:03 Last Admin: 01/26/20 19:48 Dose: 50 ml Documented by: Multivitamins/Minerals 10 ml/Thiamine HCl 100 mg/ Folic Acid 1 mg/ Sodium Chloride 1,011.2 mls @ 200 mls/hr IV ONETIME ONE Stop: 01/27/20 00:35 Last Admin: 01/26/20 21:01 Dose: 200 mls/hr Documented by: Insulin Human Regular (Novolin R) 10 unit IVPUSH ONETIME ONE; Protocol Stop: 01/26/20 19:00 Last Admin: 01/26/20 19:47 Dose: 10 unit Documented by: Morphine Sulfate (Morphine) 1 mg IVPUSH Q4H PRN PRN Reason: Pain (severe 7-10) Stop: 01/27/20 19:23 Last Admin: 01/26/20 22:25 Dose: 1 mg Documented by: Sodium Bicarbonate (Sodium Bicarbonate 8.4%) 50 meq IVPUSH ONETIME ONE Stop: 01/26/20 19:03 Last Admin: 01/26/20 19:48 Dose: 50 meq Documented by: - Exam General: Oriented, Cooperative, Other (drowsy) HEENT: Scleral Icterus Lungs: Clear to Auscultation, Normal Respiratory Effort Cardiovascular: Regular Rate, Regular Rhythm GI/Abdominal Exam: Normal Bowel Sounds, Soft, Non-Tender, No Distention Extremities: Normal Inspection, No Pedal Edema Skin: Warm, Dry, Intact Sepsis Event Note - Evaluation Sepsis Screening Result: No Definite Risk - Focused Exam Vital Signs: Vital Signs Temp Pulse Resp BP BP Pulse Ox 01/27/20 07:52 36.1 C 130 H 19 132/85 95 01/27/20 04:15 36.2 C 129 H 19 143/92 H 95 01/27/20 00:17 36.1 C 117 H 19 121/81 95 01/26/20 20:58 96.8 C H 115 H 20 122/85 98 01/26/20 20:42 118 H 20 113/76 95 Date Exam was Performed: 01/27/20 Time Exam was Performed: 13:05 - Problem List Review Problem List Initiated/Reviewed/Updated: Yes - My Orders Last 24 Hours: My Active Orders 01/27/20 07:50 Magnesium Sulfate/Water [Magnesium Sulfate in Water Premix] 2 gm Premix Bag 1 bag IV ONETIME - Plan Plan:: Assessment and Plan: 1. Alcoholic hepatitis: - Patient is NPO, continue thiamine, folic acid and IV PPI BID. Liver enzymes show transaminitis and will continue to trend LFT's. Continue IV LR's 125 cc/hr. Hepatitis panel is pending. Will replete electrolyte as required. - Patient is on PO Valium TID and IV Ativan prn [facility] protocol. - CT abdomen showed severe fatty liver, mild bowel wall thickening in descending, transverse and right colon suspicious for colitis and left lung nodular density. - Abdominal ultrasound showed fatty liver. 2. Acute kidney injury, improving: - Continue IV LR's, will monitor. 3. DVT prophylaxis: SCD's. <Brittanie Irving - Last Filed: 01/30/20 13:14> - General Info Subjective Update: I have seen and evaluated the patient and agree with the residents note unless specified in my note - Patient Data Vitals - Most Recent: Last Vital Signs Temp 37.2 C 01/30/20 10:00 Pulse 119 H 01/29/20 04:00 Resp 26 H 01/30/20 10:00 BP 112/82 01/30/20 10:00 Pulse Ox 91 L 01/30/20 10:00 I&O - Last 24 Hours: Intake & Output 01/29/20 01/30/20 01/30/20 22:59 06:59 14:59 Intake Total 1185 1531 Output Total 125 0 Balance 1060 1531 Lab Results Last 24 Hours: Laboratory Results - last 24 hr 01/29/20 01/29/20 01/30/20 Range/Units 05:37 20:21 06:05 WBC 6.80 (4.0-11.0) K/uL RBC 3.93 L (4.50-5.90) M/uL Hgb 13.7 (13.0-17.0) g/dL Hct 41.7 (38.0-50.0) % MCV 106.1 H (80.0-98.0) fL MCH 34.9 H (27.0-32.0) pg MCHC 32.9 (31.0-37.0) g/dL RDW Std Deviation 59.8 (28.0-62.0) fl RDW Coeff of Nicholas 15 (11.0-15.0) % Plt Count 129 L (150-400) K/uL MPV 13.10 H (7.40-12.00) fL Neut % (Auto) 83.2 H (48.0-80.0) % Lymph % (Auto) 4.6 L (16.0-40.0) % [place] % (Auto) 12.1 (0.0-15.0) % Eos % (Auto) 0.0 (0.0-7.0) % Baso % (Auto) 0.1 (0.0-1.5) % Neut # (Auto) 5.7 (1.4-5.7) K/uL Lymph # (Auto) 0.3 L (0.6-2.4) K/uL [place] # (Auto) 0.8 (0.0-0.8) K/uL Eos # (Auto) 0.0 (0.0-0.7) K/uL Baso # (Auto) 0.0 (0.0-0.1) K/uL Nucleated RBC % 2.0 /100WBC Nucleated RBCs # 0 K/uL INR ABG pH 7.313 L (7.35-7.45) ABG pCO2 27 L (35-45) mmHG ABG pO2 100 (75-100) mmHG ABG HCO3 13 L (22-26) mEq/L ABG Total CO2 12.3 ABG Base Excess -11.1 L (-2.0-2.0) Sodium (136-148) mmol/L Potassium (3.5-5.1) mmol/L Chloride (98-107) mmol/L Carbon Dioxide (21.0-32.0) mmol/L BUN (7.0-18.0) mg/dL Creatinine (0.8-1.3) mg/dL Est Cr Clr Drug Dosing mL/min Estimated GFR (MDRD) ml/min Glucose (74-106) mg/dL Calcium (8.5-10.1) mg/dL Phosphorus (2.6-4.7) mg/dL Magnesium (1.8-2.4) mg/dL Total Bilirubin (0.2-1.0) mg/dL AST (15-37) IU/L ALT (14-63) IU/L Alkaline Phosphatase (46-116) U/L Creatine Kinase 258 (26-308) U/L Total Protein (6.4-8.2) g/dL Albumin (3.4-5.0) g/dL Globulin (2.6-4.0) g/dL Albumin/Globulin Ratio (0.9-1.6) Lipase (73-393) U/L Acetaminophen <2.0 ug/mL 01/30/20 01/30/20 Range/Units 06:05 07:25 WBC (4.0-11.0) K/uL RBC (4.50-5.90) M/uL Hgb (13.0-17.0) g/dL Hct (38.0-50.0) % MCV (80.0-98.0) fL MCH (27.0-32.0) pg MCHC (31.0-37.0) g/dL RDW Std Deviation (28.0-62.0) fl RDW Coeff of Nicholas (11.0-15.0) % Plt Count (150-400) K/uL MPV (7.40-12.00) fL Neut % (Auto) (48.0-80.0) % Lymph % (Auto) (16.0-40.0) % [place] % (Auto) (0.0-15.0) % Eos % (Auto) (0.0-7.0) % Baso % (Auto) (0.0-1.5) % Neut # (Auto) (1.4-5.7) K/uL Lymph # (Auto) (0.6-2.4) K/uL [place] # (Auto) (0.0-0.8) K/uL Eos # (Auto) (0.0-0.7) K/uL Baso # (Auto) (0.0-0.1) K/uL Nucleated RBC % /100WBC Nucleated RBCs # K/uL INR 2.26 ABG pH (7.35-7.45) ABG pCO2 (35-45) mmHG ABG pO2 (75-100) mmHG ABG HCO3 (22-26) mEq/L ABG Total CO2 ABG Base Excess (-2.0-2.0) Sodium 129 L (136-148) mmol/L Potassium 6.4 H (3.5-5.1) mmol/L Chloride 94 L (98-107) mmol/L Carbon Dioxide 14.9 L (21.0-32.0) mmol/L BUN 49 H (7.0-18.0) mg/dL Creatinine 1.6 H (0.8-1.3) mg/dL Est Cr Clr Drug Dosing 64.93 mL/min Estimated GFR (MDRD) 46.2 ml/min Glucose 97 (74-106) mg/dL Calcium 8.4 L (8.5-10.1) mg/dL Phosphorus 5.0 H (2.6-4.7) mg/dL Magnesium 2.1 (1.8-2.4) mg/dL Total Bilirubin 11.1 H (0.2-1.0) mg/dL AST 3329 H (15-37) IU/L ALT 495 H (14-63) IU/L Alkaline Phosphatase 136 H (46-116) U/L Creatine Kinase (26-308) U/L Total Protein 6.1 L (6.4-8.2) g/dL Albumin 3.1 L (3.4-5.0) g/dL Globulin 3.0 (2.6-4.0) g/dL Albumin/Globulin Ratio 1.0 (0.9-1.6) Lipase 410 H (73-393) U/L Acetaminophen ug/mL Yasmany Results Last 24 Hours: Microbiology 01/27/20 16:05 Urine Culture - Final Urine, Clean Catch MIXED FLORENCIA 1,000-10,000 CFU/ML Med Orders - Current: Current Medications Discontinued Medications Albuterol/Ipratropium (Duoneb 3.0-0.5 Mg/3 Ml) 3 ml NEB ONETIME ONE Stop: 01/26/20 18:29 Last Admin: 01/26/20 18:42 Dose: 3 ml Documented by: Albuterol/Ipratropium (Duoneb 3.0-0.5 Mg/3 Ml) 3 ml NEB Q4HRRT PRN PRN Reason: Shortness Of Breath/wheezing Last Admin: 01/27/20 05:56 Dose: 3 ml Documented by: Calcium Gluconate (Calcium Gluconate) 1 gm IVPUSH ONETIME ONE Stop: 01/27/20 10:50 Last Admin: 01/27/20 11:19 Dose: 1 gm Documented by: Calcium Gluconate (Calcium Gluconate) 1 gm IVPUSH ONETIME ONE Stop: 01/30/20 10:16 Last Admin: 01/30/20 10:29 Dose: 1 gm Documented by: Dextrose/Water (Dextrose 50% In Water) 50 ml IVPUSH ONETIME ONE Stop: 01/26/20 19:03 Last Admin: 01/26/20 19:48 Dose: 50 ml Documented by: Dextrose/Water (Dextrose 50% In Water) 50 ml IVPUSH ONETIME ONE Stop: 01/30/20 10:16 Last Admin: 01/30/20 10:30 Dose: 50 ml Documented by: Diazepam (Valium.) 5 mg PO TID [facility] Last Admin: 01/29/20 07:16 Dose: Not Given Documented by: Diazepam (Valium) 5 mg IVPUSH Q8H PRN PRN Reason: Agitation Last Admin: 01/29/20 09:25 Dose: 5 mg Documented by: Diazepam (Valium) 10 mg IVPUSH Q8H PRN PRN Reason: Agitation Last Admin: 01/30/20 06:14 Dose: 10 mg Documented by: Diphenhydramine HCl (Benadryl) 50 mg IVPUSH ONETIME ONE Stop: 01/29/20 03:27 Last Admin: 01/29/20 03:33 Dose: 50 mg Documented by: Folic Acid (Folic Acid) 1 mg IV DAILY [facility] Last Admin: 01/30/20 09:17 Dose: 1 mg Documented by: Haloperidol Lactate (Haldol) 5 mg IM ONETIME ONE Stop: 01/29/20 03:23 Last Admin: 01/29/20 03:35 Dose: 5 mg Documented by: Lactated Ringer's (Ringers, Lactated) 1,000 mls @ 125 mls/hr IV ASDIRECTED [facility] Last Admin: 01/30/20 06:19 Dose: 125 mls/hr Documented by: Pantoprazole Sodium 40 mg/ (Sodium Chloride) 10 mls @ 300 mls/hr IV BID [facility] Last Admin: 01/30/20 09:17 Dose: 300 mls/hr Documented by: Multivitamins/Minerals 10 ml/Thiamine HCl 100 mg/ Folic Acid 1 mg/ Sodium Chloride 1,011.2 mls @ 200 mls/hr IV ONETIME ONE Stop: 01/27/20 00:35 Last Admin: 01/26/20 21:01 Dose: 200 mls/hr Documented by: Thiamine HCl 100 mg/ Sodium (Chloride) 101 mls @ 202 mls/hr IV DAILY [facility] Last Admin: 01/30/20 09:17 Dose: 202 mls/hr Documented by: Magnesium Sulfate 2 gm/ Premix 50 mls @ 50 mls/hr IV ONETIME ONE Stop: 01/27/20 08:49 Last Admin: 01/27/20 08:12 Dose: 50 mls/hr Documented by: Lactated Ringer's (Ringers, Lactated) 1,000 mls @ 999 mls/hr IV ASDIRECTED [facility] Stop: 01/27/20 12:01 Last Admin: 01/27/20 11:25 Dose: 999 mls/hr Documented by: Lactated Ringer's (Ringers, Lactated) 1,000 mls @ 999 mls/hr IV .BOLUS ONE Stop: 01/28/20 11:09 Last Admin: 01/28/20 10:48 Dose: 999 mls/hr Documented by: Ceftriaxone Sodium/Dextrose 1 (gm/ Premix) 50 mls @ 100 mls/hr IV ONETIME ONE Stop: 01/28/20 10:44 Last Admin: 01/28/20 10:48 Dose: 100 mls/hr Documented by: Lactated Ringer's (Ringers, Lactated) 500 mls @ 999 mls/hr IV .BOLUS ONE Stop: 01/28/20 16:45 Last Admin: 01/28/20 17:24 Dose: 999 mls/hr Documented by: Lactated Ringer's (Ringers, Lactated) 1,000 mls @ 999 mls/hr IV .BOLUS ONE Stop: 01/29/20 11:13 Last Admin: 01/29/20 10:20 Dose: 999 mls/hr Documented by: Albumin Human (Flexbumin 25%) 12.5 gm in 50 mls @ 100 mls/hr IV ONETIME ONE Stop: 01/29/20 12:26 Last Admin: 01/29/20 12:10 Dose: 100 mls/hr Documented by: Phytonadione 10 mg/ Sodium (Chloride) 51 mls @ 100 mls/hr IV NOW STA Stop: 01/30/20 10:28 Last Admin: 01/30/20 10:26 Dose: 100 mls/hr Documented by: Albumin Human 12.5 gm/ Premix 50 mls @ 100 mls/hr IV ASDIRECTED [facility] Stop: 02/06/20 10:59 Insulin Human Regular (Novolin R) 10 unit IVPUSH ONETIME ONE; Protocol Stop: 01/26/20 19:00 Last Admin: 01/26/20 19:47 Dose: 10 unit Documented by: Insulin Human Regular (Novolin R) 10 unit IVPUSH ONETIME ONE; Protocol Stop: 01/30/20 10:15 Last Admin: 01/30/20 10:27 Dose: 10 units Documented by: Latanoprost (Xalatan 0.005% Ophth Soln) 0 ml EYEBOTH BEDTIME [facility] Last Admin: 01/28/20 22:38 Dose: 1 drop Documented by: Latanoprost (Xalatan 0.005% Ophth Soln) 0 ml EYEBOTH BEDTIME [facility] Last Admin: 01/29/20 22:20 Dose: Not Given Documented by: Lorazepam (Ativan) 0 mg IVPUSH Q4H PRN; Protocol PRN Reason: Withdrawal Symptoms Last Admin: 01/30/20 10:43 Dose: 2 mg Documented by: Lorazepam (Ativan) 4 mg IVPUSH ONETIME ONE Stop: 01/29/20 05:03 Last Admin: 01/29/20 05:14 Dose: 4 mg Documented by: Methylprednisolone Sodium Succinate (Solu-Medrol) 32 mg IVPUSH DAILY [facility] Last Admin: 01/30/20 09:17 Dose: 32 mg Documented by: Morphine Sulfate (Morphine) 1 mg IVPUSH Q4H PRN PRN Reason: Pain (severe 7-10) Stop: 01/27/20 19:23 Last Admin: 01/26/20 22:25 Dose: 1 mg Documented by: Morphine Sulfate (Morphine) 1 mg IVPUSH Q4H PRN PRN Reason: Pain (severe 7-10) Last Admin: 01/29/20 16:12 Dose: 1 mg Documented by: Ondansetron HCl (Zofran) 4 mg IVPUSH Q4H PRN PRN Reason: Nausea/Vomiting Last Admin: 01/27/20 04:24 Dose: 4 mg Documented by: Fluticasone/Salmeterol (Advair Diskus 250-50) 1 puff INH DAILY [facility] Last Admin: 01/30/20 09:39 Dose: Not Given Documented by: Sodium Bicarbonate (Sodium Bicarbonate 8.4%) 50 meq IVPUSH ONETIME ONE Stop: 01/26/20 19:03 Last Admin: 01/26/20 19:48 Dose: 50 meq Documented by: Sodium Bicarbonate (Sodium Bicarbonate 8.4%) 100 meq IV ONETIME ONE Stop: 01/30/20 10:46 Last Admin: 01/30/20 11:13 Dose: 100 meq Documented by: Sodium Phosphate (Neutra-Phos) 250 mg PO QID HU Stop: 01/29/20 06:01 Last Admin: 01/29/20 07:16 Dose: Not Given Documented by: Sepsis Event Note - Focused Exam Vital Signs: Vital Signs Temp Resp BP Pulse Ox 01/30/20 10:00 37.2 C 26 H 112/82 91 L 01/30/20 09:00 30 H 107/78 96 01/30/20 08:00 22 H 107/67 97 01/30/20 07:00 36.1 C 22 H 107/83 97 01/30/20 06:00 36.2 C 21 H 100/79 96 01/30/20 05:00 25 H 93/70 94 L 01/30/20 04:00 24 H 93/70 96 01/30/20 03:00 26 H 122/82 99 01/30/20 02:00 22 H 115/78 95 Date Exam was Performed: 01/30/20 Time Exam was Performed: 13:14 - Problem List & Annotations (1) Transaminitis SNOMED Code(s): 678530231, 696004407 Code(s): R74.0 - NONSPEC ELEV OF LEVELS OF TRANSAMNS & LACTIC ACID DEHYDRGNSE Status: Acute (2) Alcohol abuse SNOMED Code(s): 21675315 Code(s): F10.10 - ALCOHOL ABUSE, UNCOMPLICATED Status: Acute (3) Hyperkalemia SNOMED Code(s): 45705990 Code(s): E87.5 - HYPERKALEMIA Status: Acute
--- NOTE | 2020-01-27 09:09 | US ---
Limited abdominal ultrasound: Multiple real-time images of the upper right abdomen were obtained. Comparison: Prior CT abdomen and pelvis exam performed on 01/26/20. Liver is slightly enlarged and echogenic in relation to the right kidney compatible with fatty infiltration. No discrete focal abnormality is appreciated within the liver. Gallbladder contains no shadowing gallstones. No gallbladder wall thickening or biliary duct dilatation is seen. Right kidney shows no hydronephrosis or mass. Right kidney has a length of 13.4 cm. Aorta shows no aneurysm. Pancreas is mostly obscured from bowel gas. Impression: 1. Fatty infiltration within the liver. 2. Mostly obscured pancreas from bowel gas. 3. No additional abnormality is appreciated on right upper quadrant abdominal ultrasound. Diagnostic code #3 This report was dictated in MDT
[2020-01-27] MEDS: Thiamine 100 MG in Sodium Chloride 0.9% 100 ML IV SCH (09:12)
[2020-01-27] MEDS ORDERED: Calcium Gluconate 10% 1 GM/10 ML SDV IVPUSH ONE (10:49)
[2020-01-27] MEDS ORDERED: Lactated Ringers 1,000 ML IV SCH (11:00)
[2020-01-27] MEDS: Latanoprost 0.005% Ophth Soln 2.5 ML Bottle EYEBOTH SCH (20:58)
[2020-01-28] MEDS: Lactated Ringers 1,000 ML IV SCH ×3 (00:14→18:33)
[2020-01-28] MEDS: Diazepam 5 MG Tab PO SCH ×3 (04:59→22:45)
[2020-01-28 06:23] LABS: CARBON DIOXIDE,CO2 21.2 mmol/L (21.0-32.0); POTASSIUM,K 4.8 mmol/L (3.5-5.1)
[2020-01-28] MEDS: Folic Acid 50 MG/10 ML MDV IV SCH (08:16)
[2020-01-28] MEDS: Fluticasone/Salmeterol 250-50 MCG Inhalation Powder 14/Diskus INH SCH (08:16)
[2020-01-28] MEDS: Pantoprazole 40 MG in Sodium Chloride 0.9% 10 ML IV SCH ×2 (08:16→20:58)
--- NOTE | 2020-01-28 08:34 | PCM.PN ---
<Edy Neri M - Last Filed: 01/28/20 11:44> - General Info Date of Service: 01/28/20 Subjective Update: Patient reports no complaints at bedside this morning. Tolerating clear liquid diet. Denies any fevers, chills, SOB, chest pain, abdominal pain, nausea or vomiting. - Patient Data Vitals - Most Recent: Last Vital Signs Temp 36 C L 01/28/20 07:05 Pulse 121 H 01/28/20 07:05 Resp 18 01/28/20 07:05 BP 120/83 01/28/20 07:05 Pulse Ox 95 01/28/20 07:05 Weight - Most Recent: 106.8 kg I&O - Last 24 Hours: Intake & Output 01/27/20 01/28/20 01/28/20 22:59 06:59 14:59 Intake Total 2411 2140 Output Total 0 566 Balance 2411 1574 Lab Results Last 24 Hours: Laboratory Results - last 24 hr 01/27/20 01/28/20 01/28/20 Range/Units 16:05 05:48 05:48 WBC 5.64 (4.0-11.0) K/uL RBC 3.69 L (4.50-5.90) M/uL Hgb 12.6 L (13.0-17.0) g/dL Hct 37.2 L (38.0-50.0) % MCV 100.8 H (80.0-98.0) fL MCH 34.1 H (27.0-32.0) pg MCHC 33.9 (31.0-37.0) g/dL RDW Std Deviation 53.2 (28.0-62.0) fl RDW Coeff of Nicholas 15 (11.0-15.0) % Plt Count 79 L (150-400) K/uL MPV 12.70 H (7.40-12.00) fL Neut % (Auto) 82.3 H (48.0-80.0) % Lymph % (Auto) 8.7 L (16.0-40.0) % Edmonson % (Auto) 8.3 (0.0-15.0) % Eos % (Auto) 0.5 (0.0-7.0) % Baso % (Auto) 0.2 (0.0-1.5) % Neut # (Auto) 4.6 (1.4-5.7) K/uL Lymph # (Auto) 0.5 L (0.6-2.4) K/uL Edmonson # (Auto) 0.5 (0.0-0.8) K/uL Eos # (Auto) 0.0 (0.0-0.7) K/uL Baso # (Auto) 0.0 (0.0-0.1) K/uL Nucleated RBC % 2.0 /100WBC Nucleated RBCs # 0 K/uL Sodium 121 L (136-148) mmol/L Potassium 4.8 (3.5-5.1) mmol/L Chloride 90 L (98-107) mmol/L Carbon Dioxide 21.2 (21.0-32.0) mmol/L BUN 30 H (7.0-18.0) mg/dL Creatinine 1.3 (0.8-1.3) mg/dL Est Cr Clr Drug Dosing 79.92 mL/min Estimated GFR (MDRD) 58.7 ml/min Glucose 145 H (74-106) mg/dL Calcium 8.2 L (8.5-10.1) mg/dL Phosphorus 2.1 L (2.6-4.7) mg/dL Magnesium 2.0 (1.8-2.4) mg/dL Total Bilirubin 6.3 H (0.2-1.0) mg/dL AST 1088 H (15-37) IU/L ALT 211 H (14-63) IU/L Alkaline Phosphatase 117 H (46-116) U/L Total Protein 6.3 L (6.4-8.2) g/dL Albumin 3.1 L (3.4-5.0) g/dL Globulin 3.2 (2.6-4.0) g/dL Albumin/Globulin Ratio 1.0 (0.9-1.6) Lipase 704 H (73-393) U/L TSH 3rd Generation 2.67 (0.36-3.74) uIU/mL Urine Color SHAUNNA Urine Appearance CLEAR Urine pH 6.0 (5.0-8.0) Ur Specific Nora >= 1.030 (1.001-1.035) Urine Protein 30 H (NEGATIVE) mg/dL Urine Glucose (UA) NEGATIVE (NEGATIVE) mg/dL Urine Ketones 15 H (NEGATIVE) mg/dL Urine Occult Blood TRACE-INTACT H (NEGATIVE) Urine Nitrite POSITIVE H (NEGATIVE) Urine Bilirubin MODERATE H (NEGATIVE) Urine Ictotest POSITIVE Urine Urobilinogen 2.0 H (<2.0) EU/dL Ur Leukocyte Esterase NEGATIVE (NEGATIVE) Urine RBC 0-1 (0-2/HPF) Urine WBC 0-2 (0-5/HPF) Ur Epithelial Cells FEW (NONE-FEW) Urine Bacteria FEW (NEGATIVE) Urine Mucus LIGHT (NONE-MOD) Med Orders - Current: Current Medications Albuterol/Ipratropium (Duoneb 3.0-0.5 Mg/3 Ml) 3 ml NEB Q4HRRT PRN PRN Reason: Shortness Of Breath/wheezing Last Admin: 01/27/20 05:56 Dose: 3 ml Documented by: Diazepam (Valium.) 5 mg PO TID [facility] Last Admin: 01/28/20 04:59 Dose: 5 mg Documented by: Folic Acid (Folic Acid) 1 mg IV DAILY [facility] Last Admin: 01/28/20 08:16 Dose: 1 mg Documented by: Lactated Ringer's (Ringers, Lactated) 1,000 mls @ 125 mls/hr IV ASDIRECTED [facility] Last Admin: 01/28/20 08:23 Dose: 125 mls/hr Documented by: Pantoprazole Sodium 40 mg/ (Sodium Chloride) 10 mls @ 300 mls/hr IV BID [facility] Last Admin: 01/28/20 08:16 Dose: 300 mls/hr Documented by: Thiamine HCl 100 mg/ Sodium (Chloride) 101 mls @ 202 mls/hr IV DAILY [facility] Last Admin: 01/27/20 09:12 Dose: 202 mls/hr Documented by: Latanoprost (Xalatan 0.005% Ophth Soln) 0 ml EYEBOTH BEDTIME [facility] Last Admin: 01/27/20 20:58 Dose: Not Given Documented by: Lorazepam (Ativan) 0 mg IVPUSH Q4H PRN; Protocol PRN Reason: Withdrawal Symptoms Last Admin: 01/27/20 06:49 Dose: 2 mg Documented by: Morphine Sulfate (Morphine) 1 mg IVPUSH Q4H PRN PRN Reason: Pain (severe 7-10) Ondansetron HCl (Zofran) 4 mg IVPUSH Q4H PRN PRN Reason: Nausea/Vomiting Last Admin: 01/27/20 04:24 Dose: 4 mg Documented by: Fluticasone/Salmeterol (Advair Diskus 250-50) 1 puff INH DAILY [facility] Last Admin: 01/28/20 08:16 Dose: 1 puff Documented by: Discontinued Medications Albuterol/Ipratropium (Duoneb 3.0-0.5 Mg/3 Ml) 3 ml NEB ONETIME ONE Stop: 01/26/20 18:29 Last Admin: 01/26/20 18:42 Dose: 3 ml Documented by: Calcium Gluconate (Calcium Gluconate) 1 gm IVPUSH ONETIME ONE Stop: 01/27/20 10:50 Last Admin: 01/27/20 11:19 Dose: 1 gm Documented by: Dextrose/Water (Dextrose 50% In Water) 50 ml IVPUSH ONETIME ONE Stop: 01/26/20 19:03 Last Admin: 01/26/20 19:48 Dose: 50 ml Documented by: Multivitamins/Minerals 10 ml/Thiamine HCl 100 mg/ Folic Acid 1 mg/ Sodium Chloride 1,011.2 mls @ 200 mls/hr IV ONETIME ONE Stop: 01/27/20 00:35 Last Admin: 01/26/20 21:01 Dose: 200 mls/hr Documented by: Magnesium Sulfate 2 gm/ Premix 50 mls @ 50 mls/hr IV ONETIME ONE Stop: 01/27/20 08:49 Last Admin: 01/27/20 08:12 Dose: 50 mls/hr Documented by: Lactated Ringer's (Ringers, Lactated) 1,000 mls @ 999 mls/hr IV ASDIRECTED [facility] Stop: 01/27/20 12:01 Last Admin: 01/27/20 11:25 Dose: 999 mls/hr Documented by: Insulin Human Regular (Novolin R) 10 unit IVPUSH ONETIME ONE; Protocol Stop: 01/26/20 19:00 Last Admin: 01/26/20 19:47 Dose: 10 unit Documented by: Morphine Sulfate (Morphine) 1 mg IVPUSH Q4H PRN PRN Reason: Pain (severe 7-10) Stop: 01/27/20 19:23 Last Admin: 01/26/20 22:25 Dose: 1 mg Documented by: Sodium Bicarbonate (Sodium Bicarbonate 8.4%) 50 meq IVPUSH ONETIME ONE Stop: 01/26/20 19:03 Last Admin: 01/26/20 19:48 Dose: 50 meq Documented by: - Exam General: Alert, Oriented, Cooperative, No Acute Distress Lungs: Clear to Auscultation, Normal Respiratory Effort Cardiovascular: Regular Rate, Regular Rhythm GI/Abdominal Exam: Normal Bowel Sounds, Soft, Non-Tender, No Distention. No: Guarding, Rebound Extremities: Other (trace pitting edema b/l) Sepsis Event Note - Evaluation Sepsis Screening Result: No Definite Risk - Focused Exam Vital Signs: Vital Signs Temp Pulse Resp BP Pulse Ox 01/28/20 07:05 36 C L 121 H 18 120/83 95 01/28/20 03:00 36.1 C 119 H 17 104/65 96 01/27/20 23:00 36.3 C 119 H 18 120/77 95 Date Exam was Performed: 01/28/20 Time Exam was Performed: 11:44 - Problem List Review Problem List Initiated/Reviewed/Updated: Yes - My Orders Last 24 Hours: My Active Orders 01/27/20 Lunch Clear Liquid Diet [DIET] 01/27/20 16:05 CULTURE URINE [RM] Urgent 01/27/20 16:51 RT Post Treatment Assessment [RC] Click to Edit RT Pre-Treatment Assessment [RC] Click to Edit 01/27/20 21:00 Latanoprost [Xalatan 0.005% Ophth Soln] 0 ml EYEBOTH BEDTIME 01/28/20 09:00 Fluticasone/Salmeterol [Advair Diskus 250-50] 1 puff INH DAILY - Plan Plan:: Assessment and Plan: 1. Alcoholic hepatitis: - Will advance to soft diet. Continue thiamine, folic acid and IV PPI BID. Transaminitis downtrending this morning, will continue to trend. Will give 1 L IV LR bolus and continue IV LR's 125 cc/hr. Monitor strict I's and O's. Will replete electrolytes as required. Hepatitis panel is pending. - Patient is on PO Valium TID and IV Ativan prn CIWAA protocol. - CT abdomen showed severe fatty liver, mild bowel wall thickening in descending, transverse and right colon suspicious for colitis and left lung nodular density. - Abdominal ultrasound showed fatty liver. 2. Acute kidney injury, resolved: 3. DVT prophylaxis: SCD's. <Brittanie Irving - Last Filed: 01/30/20 13:23> - General Info Subjective Update: I have seen and evaluated the patient and agree with the residents note unless specified in my note - Patient Data Vitals - Most Recent: Last Vital Signs Temp 37.2 C 01/30/20 10:00 Pulse 119 H 01/29/20 04:00 Resp 26 H 01/30/20 10:00 BP 112/82 01/30/20 10:00 Pulse Ox 91 L 01/30/20 10:00 I&O - Last 24 Hours: Intake & Output 01/29/20 01/30/20 01/30/20 22:59 06:59 14:59 Intake Total 1185 1531 Output Total 125 0 Balance 1060 1531 Lab Results Last 24 Hours: Laboratory Results - last 24 hr 01/29/20 01/29/20 01/30/20 Range/Units 05:37 20:21 06:05 WBC 6.80 (4.0-11.0) K/uL RBC 3.93 L (4.50-5.90) M/uL Hgb 13.7 (13.0-17.0) g/dL Hct 41.7 (38.0-50.0) % MCV 106.1 H (80.0-98.0) fL MCH 34.9 H (27.0-32.0) pg MCHC 32.9 (31.0-37.0) g/dL RDW Std Deviation 59.8 (28.0-62.0) fl RDW Coeff of Nicholas 15 (11.0-15.0) % Plt Count 129 L (150-400) K/uL MPV 13.10 H (7.40-12.00) fL Neut % (Auto) 83.2 H (48.0-80.0) % Lymph % (Auto) 4.6 L (16.0-40.0) % Edmonson % (Auto) 12.1 (0.0-15.0) % Eos % (Auto) 0.0 (0.0-7.0) % Baso % (Auto) 0.1 (0.0-1.5) % Neut # (Auto) 5.7 (1.4-5.7) K/uL Lymph # (Auto) 0.3 L (0.6-2.4) K/uL Edmonson # (Auto) 0.8 (0.0-0.8) K/uL Eos # (Auto) 0.0 (0.0-0.7) K/uL Baso # (Auto) 0.0 (0.0-0.1) K/uL Nucleated RBC % 2.0 /100WBC Nucleated RBCs # 0 K/uL INR ABG pH 7.313 L (7.35-7.45) ABG pCO2 27 L (35-45) mmHG ABG pO2 100 (75-100) mmHG ABG HCO3 13 L (22-26) mEq/L ABG Total CO2 12.3 ABG Base Excess -11.1 L (-2.0-2.0) Sodium (136-148) mmol/L Potassium (3.5-5.1) mmol/L Chloride (98-107) mmol/L Carbon Dioxide (21.0-32.0) mmol/L BUN (7.0-18.0) mg/dL Creatinine (0.8-1.3) mg/dL Est Cr Clr Drug Dosing mL/min Estimated GFR (MDRD) ml/min Glucose (74-106) mg/dL Calcium (8.5-10.1) mg/dL Phosphorus (2.6-4.7) mg/dL Magnesium (1.8-2.4) mg/dL Total Bilirubin (0.2-1.0) mg/dL AST (15-37) IU/L ALT (14-63) IU/L Alkaline Phosphatase (46-116) U/L Creatine Kinase 258 (26-308) U/L Total Protein (6.4-8.2) g/dL Albumin (3.4-5.0) g/dL Globulin (2.6-4.0) g/dL Albumin/Globulin Ratio (0.9-1.6) Lipase (73-393) U/L Acetaminophen <2.0 ug/mL 01/30/20 01/30/20 Range/Units 06:05 07:25 WBC (4.0-11.0) K/uL RBC (4.50-5.90) M/uL Hgb (13.0-17.0) g/dL Hct (38.0-50.0) % MCV (80.0-98.0) fL MCH (27.0-32.0) pg MCHC (31.0-37.0) g/dL RDW Std Deviation (28.0-62.0) fl RDW Coeff of Nicholas (11.0-15.0) % Plt Count (150-400) K/uL MPV (7.40-12.00) fL Neut % (Auto) (48.0-80.0) % Lymph % (Auto) (16.0-40.0) % Edmonson % (Auto) (0.0-15.0) % Eos % (Auto) (0.0-7.0) % Baso % (Auto) (0.0-1.5) % Neut # (Auto) (1.4-5.7) K/uL Lymph # (Auto) (0.6-2.4) K/uL Edmonson # (Auto) (0.0-0.8) K/uL Eos # (Auto) (0.0-0.7) K/uL Baso # (Auto) (0.0-0.1) K/uL Nucleated RBC % /100WBC Nucleated RBCs # K/uL INR 2.26 ABG pH (7.35-7.45) ABG pCO2 (35-45) mmHG ABG pO2 (75-100) mmHG ABG HCO3 (22-26) mEq/L ABG Total CO2 ABG Base Excess (-2.0-2.0) Sodium 129 L (136-148) mmol/L Potassium 6.4 H (3.5-5.1) mmol/L Chloride 94 L (98-107) mmol/L Carbon Dioxide 14.9 L (21.0-32.0) mmol/L BUN 49 H (7.0-18.0) mg/dL Creatinine 1.6 H (0.8-1.3) mg/dL Est Cr Clr Drug Dosing 64.93 mL/min Estimated GFR (MDRD) 46.2 ml/min Glucose 97 (74-106) mg/dL Calcium 8.4 L (8.5-10.1) mg/dL Phosphorus 5.0 H (2.6-4.7) mg/dL Magnesium 2.1 (1.8-2.4) mg/dL Total Bilirubin 11.1 H (0.2-1.0) mg/dL AST 3329 H (15-37) IU/L ALT 495 H (14-63) IU/L Alkaline Phosphatase 136 H (46-116) U/L Creatine Kinase (26-308) U/L Total Protein 6.1 L (6.4-8.2) g/dL Albumin 3.1 L (3.4-5.0) g/dL Globulin 3.0 (2.6-4.0) g/dL Albumin/Globulin Ratio 1.0 (0.9-1.6) Lipase 410 H (73-393) U/L Acetaminophen ug/mL Yasmany Results Last 24 Hours: Microbiology 01/27/20 16:05 Urine Culture - Final Urine, Clean Catch MIXED FLORENCIA 1,000-10,000 CFU/ML Med Orders - Current: Current Medications Discontinued Medications Albuterol/Ipratropium (Duoneb 3.0-0.5 Mg/3 Ml) 3 ml NEB ONETIME ONE Stop: 01/26/20 18:29 Last Admin: 01/26/20 18:42 Dose: 3 ml Documented by: Albuterol/Ipratropium (Duoneb 3.0-0.5 Mg/3 Ml) 3 ml NEB Q4HRRT PRN PRN Reason: Shortness Of Breath/wheezing Last Admin: 01/27/20 05:56 Dose: 3 ml Documented by: Calcium Gluconate (Calcium Gluconate) 1 gm IVPUSH ONETIME ONE Stop: 01/27/20 10:50 Last Admin: 01/27/20 11:19 Dose: 1 gm Documented by: Calcium Gluconate (Calcium Gluconate) 1 gm IVPUSH ONETIME ONE Stop: 01/30/20 10:16 Last Admin: 01/30/20 10:29 Dose: 1 gm Documented by: Dextrose/Water (Dextrose 50% In Water) 50 ml IVPUSH ONETIME ONE Stop: 01/26/20 19:03 Last Admin: 01/26/20 19:48 Dose: 50 ml Documented by: Dextrose/Water (Dextrose 50% In Water) 50 ml IVPUSH ONETIME ONE Stop: 01/30/20 10:16 Last Admin: 08/08/20 10:30 Dose: 50 ml Documented by: Diazepam (Valium.) 5 mg PO TID [facility] Last Admin: 01/29/20 07:16 Dose: Not Given Documented by: Diazepam (Valium) 5 mg IVPUSH Q8H PRN PRN Reason: Agitation Last Admin: 01/29/20 09:25 Dose: 5 mg Documented by: Diazepam (Valium) 10 mg IVPUSH Q8H PRN PRN Reason: Agitation Last Admin: 01/30/20 06:14 Dose: 10 mg Documented by: Diphenhydramine HCl (Benadryl) 50 mg IVPUSH ONETIME ONE Stop: 01/29/20 03:27 Last Admin: 01/29/20 03:33 Dose: 50 mg Documented by: Folic Acid (Folic Acid) 1 mg IV DAILY [facility] Last Admin: 01/30/20 09:17 Dose: 1 mg Documented by: Haloperidol Lactate (Haldol) 5 mg IM ONETIME ONE Stop: 01/29/20 03:23 Last Admin: 01/29/20 03:35 Dose: 5 mg Documented by: Lactated Ringer's (Ringers, Lactated) 1,000 mls @ 125 mls/hr IV ASDIRECTED [facility] Last Admin: 01/30/20 06:19 Dose: 125 mls/hr Documented by: Pantoprazole Sodium 40 mg/ (Sodium Chloride) 10 mls @ 300 mls/hr IV BID [facility] Last Admin: 01/30/20 09:17 Dose: 300 mls/hr Documented by: Multivitamins/Minerals 10 ml/Thiamine HCl 100 mg/ Folic Acid 1 mg/ Sodium Chloride 1,011.2 mls @ 200 mls/hr IV ONETIME ONE Stop: 01/27/20 00:35 Last Admin: 01/26/20 21:01 Dose: 200 mls/hr Documented by: Thiamine HCl 100 mg/ Sodium (Chloride) 101 mls @ 202 mls/hr IV DAILY [facility] Last Admin: 01/30/20 09:17 Dose: 202 mls/hr Documented by: Magnesium Sulfate 2 gm/ Premix 50 mls @ 50 mls/hr IV ONETIME ONE Stop: 01/27/20 08:49 Last Admin: 01/27/20 08:12 Dose: 50 mls/hr Documented by: Lactated Ringer's (Ringers, Lactated) 1,000 mls @ 999 mls/hr IV ASDIRECTED [facility] Stop: 01/27/20 12:01 Last Admin: 01/27/20 11:25 Dose: 999 mls/hr Documented by: Lactated Ringer's (Ringers, Lactated) 1,000 mls @ 999 mls/hr IV .BOLUS ONE Stop: 01/28/20 11:09 Last Admin: 01/28/20 10:48 Dose: 999 mls/hr Documented by: Ceftriaxone Sodium/Dextrose 1 (gm/ Premix) 50 mls @ 100 mls/hr IV ONETIME ONE Stop: 01/28/20 10:44 Last Admin: 01/28/20 10:48 Dose: 100 mls/hr Documented by: Lactated Ringer's (Ringers, Lactated) 500 mls @ 999 mls/hr IV .BOLUS ONE Stop: 01/28/20 16:45 Last Admin: 01/28/20 17:24 Dose: 999 mls/hr Documented by: Lactated Ringer's (Ringers, Lactated) 1,000 mls @ 999 mls/hr IV .BOLUS ONE Stop: 01/29/20 11:13 Last Admin: 01/29/20 10:20 Dose: 999 mls/hr Documented by: Albumin Human (Flexbumin 25%) 12.5 gm in 50 mls @ 100 mls/hr IV ONETIME ONE Stop: 01/29/20 12:26 Last Admin: 01/29/20 12:10 Dose: 100 mls/hr Documented by: Phytonadione 10 mg/ Sodium (Chloride) 51 mls @ 100 mls/hr IV NOW STA Stop: 01/30/20 10:28 Last Admin: 01/30/20 10:26 Dose: 100 mls/hr Documented by: Albumin Human 12.5 gm/ Premix 50 mls @ 100 mls/hr IV ASDIRECTED [facility] Stop: 02/06/20 10:59 Insulin Human Regular (Novolin R) 10 unit IVPUSH ONETIME ONE; Protocol Stop: 01/26/20 19:00 Last Admin: 01/26/20 19:47 Dose: 10 unit Documented by: Insulin Human Regular (Novolin R) 10 unit IVPUSH ONETIME ONE; Protocol Stop: 01/30/20 10:15 Last Admin: 01/30/20 10:27 Dose: 10 units Documented by: Latanoprost (Xalatan 0.005% Ophth Soln) 0 ml EYEBOTH BEDTIME [facility] Last Admin: 01/28/20 22:38 Dose: 1 drop Documented by: Latanoprost (Xalatan 0.005% Ophth Soln) 0 ml EYEBOTH BEDTIME [facility] Last Admin: 01/29/20 22:20 Dose: Not Given Documented by: Lorazepam (Ativan) 0 mg IVPUSH Q4H PRN; Protocol PRN Reason: Withdrawal Symptoms Last Admin: 01/30/20 10:43 Dose: 2 mg Documented by: Lorazepam (Ativan) 4 mg IVPUSH ONETIME ONE Stop: 01/29/20 05:03 Last Admin: 01/29/20 05:14 Dose: 4 mg Documented by: Methylprednisolone Sodium Succinate (Solu-Medrol) 32 mg IVPUSH DAILY [facility] Last Admin: 01/30/20 09:17 Dose: 32 mg Documented by: Morphine Sulfate (Morphine) 1 mg IVPUSH Q4H PRN PRN Reason: Pain (severe 7-10) Stop: 01/27/20 19:23 Last Admin: 01/26/20 22:25 Dose: 1 mg Documented by: Morphine Sulfate (Morphine) 1 mg IVPUSH Q4H PRN PRN Reason: Pain (severe 7-10) Last Admin: 01/29/20 16:12 Dose: 1 mg Documented by: Ondansetron HCl (Zofran) 4 mg IVPUSH Q4H PRN PRN Reason: Nausea/Vomiting Last Admin: 01/27/20 04:24 Dose: 4 mg Documented by: Fluticasone/Salmeterol (Advair Diskus 250-50) 1 puff INH DAILY [facility] Last Admin: 01/30/20 09:39 Dose: Not Given Documented by: Sodium Bicarbonate (Sodium Bicarbonate 8.4%) 50 meq IVPUSH ONETIME ONE Stop: 01/26/20 19:03 Last Admin: 01/26/20 19:48 Dose: 50 meq Documented by: Sodium Bicarbonate (Sodium Bicarbonate 8.4%) 100 meq IV ONETIME ONE Stop: 01/30/20 10:46 Last Admin: 01/30/20 11:13 Dose: 100 meq Documented by: Sodium Phosphate (Neutra-Phos) 250 mg PO QID [facility] Stop: 01/29/20 06:01 Last Admin: 01/29/20 07:16 Dose: Not Given Documented by: Sepsis Event Note - Focused Exam Vital Signs: Vital Signs Temp Resp BP Pulse Ox 01/30/20 10:00 37.2 C 26 H 112/82 91 L 01/30/20 09:00 30 H 107/78 96 01/30/20 08:00 22 H 107/67 97 01/30/20 07:00 36.1 C 22 H 107/83 97 01/30/20 06:00 36.2 C 21 H 100/79 96 01/30/20 05:00 25 H 93/70 94 L 01/30/20 04:00 24 H 93/70 96 01/30/20 03:00 26 H 122/82 99 01/30/20 02:00 22 H 115/78 95 Date Exam was Performed: 01/30/20 Time Exam was Performed: 13:23 - Problem List & Annotations (1) Transaminitis SNOMED Code(s): 302357762, 980136411 Code(s): R74.0 - NONSPEC ELEV OF LEVELS OF TRANSAMNS & LACTIC ACID DEHYDRGNSE Status: Acute (2) Alcohol abuse SNOMED Code(s): 49600159 Code(s): F10.10 - ALCOHOL ABUSE, UNCOMPLICATED Status: Acute (3) Hyperkalemia SNOMED Code(s): 28226919 Code(s): E87.5 - HYPERKALEMIA Status: Acute
[2020-01-28] MEDS: Thiamine 100 MG in Sodium Chloride 0.9% 100 ML IV SCH (09:14)
[2020-01-28] MEDS ORDERED: Lactated Ringers 1,000 ML IV ONE (10:09)
[2020-01-28] MEDS ORDERED: cefTRIAXone 1 GM in Premix Bag 1 BAG IV ONE (10:15)
[2020-01-28] MEDS: Phosphorus #1 250 MG Tab PO SCH ×3 (11:57→23:04)
[2020-01-28] MEDS ORDERED: Lactated Ringers 500 ML IV ONE (16:15)
--- NOTE | 2020-01-28 17:10 | PCM.SN.2 ---
- Free Text/Narrative Note: Called to the floor for an IV start. Patient identified and consent obtained. Tourniquet applied to left arm. Site cleansed. 22g IV catheter on first attempt in left wrist. Flushed and secured with tegaderm and tape. Report to RN.
[2020-01-28] MEDS: LORazepam 2 MG/ML SDV IVPUSH PRN ×2 (20:57→23:48)
[2020-01-28] MEDS: Latanoprost 0.005% Ophth Soln 2.5 ML Bottle EYEBOTH SCH (22:38)
[2020-01-29] MEDS: LORazepam 2 MG/ML SDV IVPUSH PRN ×10 (02:05→23:54)
[2020-01-29] MEDS ORDERED: Haloperidol Lactate 5 MG/ML SDV IM ONE (03:22)
[2020-01-29] MEDS ORDERED: diphenhydrAMINE 50 MG/ML SDV IVPUSH ONE (03:26)
[2020-01-29] MEDS ORDERED: LORazepam 2 MG/ML SDV IVPUSH ONE (05:02)
[2020-01-29] MEDS: Morphine 2 MG/ML SYRINGE IVPUSH PRN ×3 (05:15→16:12)
[2020-01-29] MEDS: Lactated Ringers 1,000 ML IV SCH ×3 (06:07→22:19)
[2020-01-29 06:36] LABS: CARBON DIOXIDE,CO2 14.5 mmol/L (21.0-32.0); POTASSIUM,K 5.4 mmol/L (3.5-5.1)
[2020-01-29] MEDS: Diazepam 5 MG Tab PO SCH (07:16)
[2020-01-29] MEDS: Phosphorus #1 250 MG Tab PO SCH (07:16)
[2020-01-29] MEDS: Folic Acid 50 MG/10 ML MDV IV SCH (08:30)
[2020-01-29] MEDS: Pantoprazole 40 MG in Sodium Chloride 0.9% 10 ML IV SCH ×2 (08:31→21:30)
[2020-01-29] MEDS: Thiamine 100 MG in Sodium Chloride 0.9% 100 ML IV SCH (08:49)
--- NOTE | 2020-01-29 09:05 | PN ---
THC Physician - Brief Progress [id number]/07/2020 09:04[facility] [place], [place] - [facility] - JAMSHIDN OG FRANKLINShivaDate of Service 01/29/2020 09:04HPI/Events o f Note eICU Admission [id number] admitted for EtOH withdrawal and hepatitis. History obtained from jose henderson of EMR.PMH: EtOH useHPI: Patient was originally admitted on 01/25 for concern of EtOH withdrawal and hepatitis. Patient was eventually transferred to the ICU for further management.Camera exam: Laying i n bed. Vitals monitor reviewed, HR 117, BP 105/76.eICU Impression and Recommendations:Alcohol Withdra walAlcohol withdrawal protocol per institutional policy, including administration of PRN benzodiazepi sarahi. Can consider dexmedetomidine as adjunctive therapy if neededContinued telemetry monitoringThiami ne supplementation, 100mg dailyTransaminitis, suspected secondary to alcoholic hepatitisGiven elevate d INR, discriminant function is likely elevated. Use of corticosteroids is controversial - can consid er use, noting increased risk of infectionTrend LFTs, avoid hepatotoxic agentsDVT and GI prophylaxis as appropriate.Thank you for allowing us to participate in the care of this patient.The above note tr anscribed with the assistance of dictation software. Please excuse any errors.Interventions Major-Oth er: EtOH withdrawal, transaminitis
[2020-01-29] MEDS: Fluticasone/Salmeterol 250-50 MCG Inhalation Powder 14/Diskus INH SCH (09:12)
--- NOTE | 2020-01-29 09:14 | PN ---
THC Physician - Brief Progress [id number]/07/2020 09:13[facility] jules [place], [place] - DURAN ([facility]) - OG ARMENDARIZDate of Service 01/29/2020 09:13HPI/Events o f Note eICU Update NoteNotified of request to change diazepam to IV from PO. Route of administration changed.Interventions Major-Other: EtOH withdrawalElectronically Signed by: GASTON DOBBS) on 0 01/29/2020 09:13
[2020-01-29] MEDS ORDERED: Lactated Ringers 1,000 ML IV ONE (10:13)
[2020-01-29] MEDS ORDERED: Albumin 25% 12.5 GM/50 ML BAG IV ONE (11:57)
--- NOTE | 2020-01-29 12:05 | PCM.PN ---
<Edy Neri M - Last Filed: 01/29/20 11:59> - General Info Date of Service: 01/29/20 Subjective Update: Patient very agitated overnight and transferred to ICU. Patient too drowsy to answer questions at bedside this AM. - Patient Data Vitals - Most Recent: Last Vital Signs Temp 37.3 C 01/29/20 08:00 Pulse 119 H 01/29/20 04:00 Resp 35 H 01/29/20 11:00 BP 102/80 01/29/20 11:00 Pulse Ox 97 01/29/20 11:00 Weight - Most Recent: 112.3 kg I&O - Last 24 Hours: Intake & Output 01/28/20 01/29/20 01/29/20 22:59 06:59 14:59 Intake Total 4160 1165 Output Total 30 310 Balance 4130 855 Lab Results Last 24 Hours: Laboratory Results - last 24 hr 01/26/20 01/29/20 01/29/20 Range/Units 19:33 05:37 05:37 WBC 7.66 (4.0-11.0) K/uL RBC 3.96 L (4.50-5.90) M/uL Hgb 13.7 (13.0-17.0) g/dL Hct 40.8 (38.0-50.0) % MCV 103.0 H (80.0-98.0) fL MCH 34.6 H (27.0-32.0) pg MCHC 33.6 (31.0-37.0) g/dL RDW Std Deviation 56.1 (28.0-62.0) fl RDW Coeff of Nicholas 15 (11.0-15.0) % Plt Count 117 L (150-400) K/uL MPV 13.70 H (7.40-12.00) fL Neut % (Auto) 74.6 (48.0-80.0) % Lymph % (Auto) 13.4 L (16.0-40.0) % Forrest % (Auto) 11.6 (0.0-15.0) % Eos % (Auto) 0.1 (0.0-7.0) % Baso % (Auto) 0.3 (0.0-1.5) % Neut # (Auto) 5.7 (1.4-5.7) K/uL Lymph # (Auto) 1.0 (0.6-2.4) K/uL Forrest # (Auto) 0.9 H (0.0-0.8) K/uL Eos # (Auto) 0.0 (0.0-0.7) K/uL Baso # (Auto) 0.0 (0.0-0.1) K/uL Nucleated RBC % 2.2 /100WBC Nucleated RBCs # 0 K/uL INR 1.62 Sodium (136-148) mmol/L Potassium (3.5-5.1) mmol/L Chloride (98-107) mmol/L Carbon Dioxide (21.0-32.0) mmol/L BUN (7.0-18.0) mg/dL Creatinine (0.8-1.3) mg/dL Est Cr Clr Drug Dosing mL/min Estimated GFR (MDRD) ml/min Glucose (74-106) mg/dL Calcium (8.5-10.1) mg/dL Phosphorus (2.6-4.7) mg/dL Magnesium (1.8-2.4) mg/dL Total Bilirubin (0.2-1.0) mg/dL AST (15-37) IU/L ALT (14-63) IU/L Alkaline Phosphatase (46-116) U/L Ammonia (19-54) ug/dL Total Protein (6.4-8.2) g/dL Albumin (3.4-5.0) g/dL Globulin (2.6-4.0) g/dL Albumin/Globulin Ratio (0.9-1.6) Lipase (73-393) U/L Hepatitis A IgM Ab Negative (Negative) Hep Bs Antigen Negative (Negative) Hep B Core IgM Ab Negative (Negative) Hepatitis C Antibody 0.1 (0.0-0.9) s/co ratio 01/29/20 01/29/20 Range/Units 05:37 10:38 WBC (4.0-11.0) K/uL RBC (4.50-5.90) M/uL Hgb (13.0-17.0) g/dL Hct (38.0-50.0) % MCV (80.0-98.0) fL MCH (27.0-32.0) pg MCHC (31.0-37.0) g/dL RDW Std Deviation (28.0-62.0) fl RDW Coeff of Nicholas (11.0-15.0) % Plt Count (150-400) K/uL MPV (7.40-12.00) fL Neut % (Auto) (48.0-80.0) % Lymph % (Auto) (16.0-40.0) % Forrest % (Auto) (0.0-15.0) % Eos % (Auto) (0.0-7.0) % Baso % (Auto) (0.0-1.5) % Neut # (Auto) (1.4-5.7) K/uL Lymph # (Auto) (0.6-2.4) K/uL Forrest # (Auto) (0.0-0.8) K/uL Eos # (Auto) (0.0-0.7) K/uL Baso # (Auto) (0.0-0.1) K/uL Nucleated RBC % /100WBC Nucleated RBCs # K/uL INR Sodium 126 L (136-148) mmol/L Potassium 5.4 H (3.5-5.1) mmol/L Chloride 91 L (98-107) mmol/L Carbon Dioxide 14.5 L (21.0-32.0) mmol/L BUN 33 H (7.0-18.0) mg/dL Creatinine 1.4 H (0.8-1.3) mg/dL Est Cr Clr Drug Dosing 74.21 mL/min Estimated GFR (MDRD) 53.9 ml/min Glucose 88 (74-106) mg/dL Calcium 8.4 L (8.5-10.1) mg/dL Phosphorus 3.7 (2.6-4.7) mg/dL Magnesium 2.0 (1.8-2.4) mg/dL Total Bilirubin 8.3 H (0.2-1.0) mg/dL AST 1467 H (15-37) IU/L ALT 288 H (14-63) IU/L Alkaline Phosphatase 137 H (46-116) U/L Ammonia <17 L (19-54) ug/dL Total Protein 6.4 (6.4-8.2) g/dL Albumin 3.1 L (3.4-5.0) g/dL Globulin 3.3 (2.6-4.0) g/dL Albumin/Globulin Ratio 0.9 (0.9-1.6) Lipase 992 H (73-393) U/L Hepatitis A IgM Ab (Negative) Hep Bs Antigen (Negative) Hep B Core IgM Ab (Negative) Hepatitis C Antibody (0.0-0.9) s/co ratio Yasmany Results Last 24 Hours: Microbiology 01/27/20 16:05 Urine Culture - Final Urine, Clean Catch MIXED FLORENCIA 1,000-10,000 CFU/ML Med Orders - Current: Current Medications Albuterol/Ipratropium (Duoneb 3.0-0.5 Mg/3 Ml) 3 ml NEB Q4HRRT PRN PRN Reason: Shortness Of Breath/wheezing Last Admin: 01/27/20 05:56 Dose: 3 ml Documented by: Diazepam (Valium) 10 mg IVPUSH Q8H PRN PRN Reason: Agitation Folic Acid (Folic Acid) 1 mg IV DAILY HU Last Admin: 01/29/20 08:30 Dose: 1 mg Documented by: Lactated Ringer's (Ringers, Lactated) 1,000 mls @ 125 mls/hr IV ASDIRECTED HU Last Infusion: 01/29/20 06:35 Dose: 125 mls/hr Documented by: Pantoprazole Sodium 40 mg/ (Sodium Chloride) 10 mls @ 300 mls/hr IV BID HU Last Admin: 01/29/20 08:31 Dose: 300 mls/hr Documented by: Thiamine HCl 100 mg/ Sodium (Chloride) 101 mls @ 202 mls/hr IV DAILY HU Last Admin: 01/29/20 08:49 Dose: 202 mls/hr Documented by: Albumin Human (Flexbumin 25%) 12.5 gm in 50 mls @ 100 mls/hr IV ONETIME ONE Stop: 01/29/20 12:26 Latanoprost (Xalatan 0.005% Ophth Soln) 0 ml EYEBOTH BEDTIME HU Lorazepam (Ativan) 0 mg IVPUSH Q4H PRN; Protocol PRN Reason: Withdrawal Symptoms Last Admin: 01/29/20 11:06 Dose: 1 mg Documented by: Morphine Sulfate (Morphine) 1 mg IVPUSH Q4H PRN PRN Reason: Pain (severe 7-10) Last Admin: 01/29/20 09:29 Dose: 1 mg Documented by: Ondansetron HCl (Zofran) 4 mg IVPUSH Q4H PRN PRN Reason: Nausea/Vomiting Last Admin: 01/27/20 04:24 Dose: 4 mg Documented by: Fluticasone/Salmeterol (Advair Diskus 250-50) 1 puff INH DAILY [facility] Last Admin: 01/29/20 09:12 Dose: Not Given Documented by: Discontinued Medications Albuterol/Ipratropium (Duoneb 3.0-0.5 Mg/3 Ml) 3 ml NEB ONETIME ONE Stop: 01/26/20 18:29 Last Admin: 01/26/20 18:42 Dose: 3 ml Documented by: Calcium Gluconate (Calcium Gluconate) 1 gm IVPUSH ONETIME ONE Stop: 01/27/20 10:50 Last Admin: 01/27/20 11:19 Dose: 1 gm Documented by: Dextrose/Water (Dextrose 50% In Water) 50 ml IVPUSH ONETIME ONE Stop: 01/26/20 19:03 Last Admin: 01/26/20 19:48 Dose: 50 ml Documented by: Diazepam (Valium.) 5 mg PO TID [facility] Last Admin: 01/29/20 07:16 Dose: Not Given Documented by: Diazepam (Valium) 5 mg IVPUSH Q8H PRN PRN Reason: Agitation Last Admin: 01/29/20 09:25 Dose: 5 mg Documented by: Diphenhydramine HCl (Benadryl) 50 mg IVPUSH ONETIME ONE Stop: 01/29/20 03:27 Last Admin: 01/29/20 03:33 Dose: 50 mg Documented by: Haloperidol Lactate (Haldol) 5 mg IM ONETIME ONE Stop: 01/29/20 03:23 Last Admin: 01/29/20 03:35 Dose: 5 mg Documented by: Multivitamins/Minerals 10 ml/Thiamine HCl 100 mg/ Folic Acid 1 mg/ Sodium Chloride 1,011.2 mls @ 200 mls/hr IV ONETIME ONE Stop: 01/27/20 00:35 Last Admin: 01/26/20 21:01 Dose: 200 mls/hr Documented by: Magnesium Sulfate 2 gm/ Premix 50 mls @ 50 mls/hr IV ONETIME ONE Stop: 01/27/20 08:49 Last Admin: 01/27/20 08:12 Dose: 50 mls/hr Documented by: Lactated Ringer's (Ringers, Lactated) 1,000 mls @ 999 mls/hr IV ASDIRECTED [facility] Stop: 01/27/20 12:01 Last Admin: 01/27/20 11:25 Dose: 999 mls/hr Documented by: Lactated Ringer's (Ringers, Lactated) 1,000 mls @ 999 mls/hr IV .BOLUS ONE Stop: 01/28/20 11:09 Last Admin: 01/28/20 10:48 Dose: 999 mls/hr Documented by: Ceftriaxone Sodium/Dextrose 1 (gm/ Premix) 50 mls @ 100 mls/hr IV ONETIME ONE Stop: 01/28/20 10:44 Last Admin: 01/28/20 10:48 Dose: 100 mls/hr Documented by: Lactated Ringer's (Ringers, Lactated) 500 mls @ 999 mls/hr IV .BOLUS ONE Stop: 01/28/20 16:45 Last Admin: 01/28/20 17:24 Dose: 999 mls/hr Documented by: Lactated Ringer's (Ringers, Lactated) 1,000 mls @ 999 mls/hr IV .BOLUS ONE Stop: 01/29/20 11:13 Last Admin: 01/29/20 10:20 Dose: 999 mls/hr Documented by: Insulin Human Regular (Novolin R) 10 unit IVPUSH ONETIME ONE; Protocol Stop: 01/26/20 19:00 Last Admin: 01/26/20 19:47 Dose: 10 unit Documented by: Latanoprost (Xalatan 0.005% Ophth Soln) 0 ml EYEBOTH BEDTIME [facility] Last Admin: 01/28/20 22:38 Dose: 1 drop Documented by: Lorazepam (Ativan) 4 mg IVPUSH ONETIME ONE Stop: 01/29/20 05:03 Last Admin: 01/29/20 05:14 Dose: 4 mg Documented by: Morphine Sulfate (Morphine) 1 mg IVPUSH Q4H PRN PRN Reason: Pain (severe 7-10) Stop: 01/27/20 19:23 Last Admin: 08/04/20 22:25 Dose: 1 mg Documented by: Sodium Bicarbonate (Sodium Bicarbonate 8.4%) 50 meq IVPUSH ONETIME ONE Stop: 01/26/20 19:03 Last Admin: 01/26/20 19:48 Dose: 50 meq Documented by: Sodium Phosphate (Neutra-Phos) 250 mg PO QID HU Stop: 01/29/20 06:01 Last Admin: 01/29/20 07:16 Dose: Not Given Documented by: - Exam General: Mild Distress, Other (drowsy) Lungs: Clear to Auscultation, Normal Respiratory Effort Cardiovascular: Regular Rhythm, Tachycardia GI/Abdominal Exam: Normal Bowel Sounds, Soft, Non-Tender, No Distention Extremities: Other (trace pitting edema b/l) Sepsis Event Note - Evaluation Sepsis Screening Result: No Definite Risk - Focused Exam Vital Signs: Vital Signs Temp Pulse Resp BP BP Pulse Ox 01/29/20 11:00 35 H 102/80 97 01/29/20 10:00 26 H 115/92 H 91 L 01/29/20 09:00 23 H 114/80 95 01/29/20 08:00 37.3 C 21 H 105/76 96 01/29/20 07:00 22 H 96/72 94 L 01/29/20 06:00 26 H 97/76 93 L 01/29/20 05:00 36.4 C 22 H 106/74 95 01/29/20 04:00 36.4 C 119 H 23 H 107/70 96 Date Exam was Performed: 01/29/20 Time Exam was Performed: 11:59 - Problem List Review Problem List Initiated/Reviewed/Updated: Yes - My Orders Last 24 Hours: My Active Orders 01/29/20 07:24 EKG Documentation Completion [RC] URGENT 01/29/20 11:57 Albumin 25% [Flexbumin 25%] 12.5 gm in 50 ml IV ONETIME diazePAM [Valium] 10 mg IVPUSH Q8H PRN 01/29/20 21:00 Latanoprost [Xalatan 0.005% Ophth Soln] 0 ml EYEBOTH BEDTIME - Plan Plan:: Assessment and Plan: 1. Alcoholic hepatitis: - Transaminitis worsened this morning with increasing lipase. Will consider ordering MRCP, however, patient too agitated at this time secondary to #2. Considering patient's worsening liver enzymes and delirium tremens attempts were made to transfer patient to larger facility with GI specialist, however, facilities contacted in [place] and [place] ICU units are at capacity at this current time. Will continue to attempt to transfer patient when possible. - Continue thiamine, folic acid and IV PPI BID. Continue IV LR's 125 cc/hr. Monitor strict I's and O's. Monitor and replete electrolytes as required. Hepatitis panel negative. - CT abdomen showed severe fatty liver, mild bowel wall thickening in descending, transverse and right colon suspicious for colitis and left lung nodular density. - Abdominal ultrasound showed fatty liver. 2. Delirium tremens: - Patient transferred to ICU overnight for closer monitoring. Continue IV Ativan prn CIWAA protocol and IV valium TID prn. 3. Acute kidney injury: - Continue IV LR's. 4. DVT prophylaxis: SCD's. <Brittanie Irving - Last Filed: 01/29/20 22:48> - General Info Subjective Update: I have seen and evaluated the patient and agree with the residents note unless specified in my note - Patient Data Vitals - Most Recent: Last Vital Signs Temp 36.2 C 01/29/20 20:00 Pulse 119 H 01/29/20 04:00 Resp 17 01/29/20 22:00 BP 112/88 01/29/20 22:00 Pulse Ox 94 L 01/29/20 22:00 I&O - Last 24 Hours: Intake & Output 01/29/20 01/29/20 01/29/20 06:59 14:59 22:59 Intake Total 1165 1049 1185 Output Total 310 125 Balance 855 1049 1060 Lab Results Last 24 Hours: Laboratory Results - last 24 hr 01/26/20 01/29/20 01/29/20 Range/Units 19:33 05:37 05:37 WBC 7.66 (4.0-11.0) K/uL RBC 3.96 L (4.50-5.90) M/uL Hgb 13.7 (13.0-17.0) g/dL Hct 40.8 (38.0-50.0) % MCV 103.0 H (80.0-98.0) fL MCH 34.6 H (27.0-32.0) pg MCHC 33.6 (31.0-37.0) g/dL RDW Std Deviation 56.1 (28.0-62.0) fl RDW Coeff of Nicholas 15 (11.0-15.0) % Plt Count 117 L (150-400) K/uL MPV 13.70 H (7.40-12.00) fL Neut % (Auto) 74.6 (48.0-80.0) % Lymph % (Auto) 13.4 L (16.0-40.0) % Forrest % (Auto) 11.6 (0.0-15.0) % Eos % (Auto) 0.1 (0.0-7.0) % Baso % (Auto) 0.3 (0.0-1.5) % Neut # (Auto) 5.7 (1.4-5.7) K/uL Lymph # (Auto) 1.0 (0.6-2.4) K/uL Forrest # (Auto) 0.9 H (0.0-0.8) K/uL Eos # (Auto) 0.0 (0.0-0.7) K/uL Baso # (Auto) 0.0 (0.0-0.1) K/uL Nucleated RBC % 2.2 /100WBC Nucleated RBCs # 0 K/uL INR 1.62 ABG pH (7.35-7.45) ABG pCO2 (35-45) mmHG ABG pO2 (75-100) mmHG ABG HCO3 (22-26) mEq/L ABG Total CO2 ABG Base Excess (-2.0-2.0) Sodium (136-148) mmol/L Potassium (3.5-5.1) mmol/L Chloride (98-107) mmol/L Carbon Dioxide (21.0-32.0) mmol/L BUN (7.0-18.0) mg/dL Creatinine (0.8-1.3) mg/dL Est Cr Clr Drug Dosing mL/min Estimated GFR (MDRD) ml/min Glucose (74-106) mg/dL Calcium (8.5-10.1) mg/dL Phosphorus (2.6-4.7) mg/dL Magnesium (1.8-2.4) mg/dL Total Bilirubin (0.2-1.0) mg/dL AST (15-37) IU/L ALT (14-63) IU/L Alkaline Phosphatase (46-116) U/L Ammonia (19-54) ug/dL Creatine Kinase (26-308) U/L Total Protein (6.4-8.2) g/dL Albumin (3.4-5.0) g/dL Globulin (2.6-4.0) g/dL Albumin/Globulin Ratio (0.9-1.6) Lipase (73-393) U/L Acetaminophen ug/mL Hepatitis A IgM Ab Negative (Negative) Hep Bs Antigen Negative (Negative) Hep B Core IgM Ab Negative (Negative) Hepatitis C Antibody 0.1 (0.0-0.9) s/co ratio 01/29/20 01/29/20 01/29/20 Range/Units 05:37 05:37 10:38 WBC (4.0-11.0) K/uL RBC (4.50-5.90) M/uL Hgb (13.0-17.0) g/dL Hct (38.0-50.0) % MCV (80.0-98.0) fL MCH (27.0-32.0) pg MCHC (31.0-37.0) g/dL RDW Std Deviation (28.0-62.0) fl RDW Coeff of Nicholas (11.0-15.0) % Plt Count (150-400) K/uL MPV (7.40-12.00) fL Neut % (Auto) (48.0-80.0) % Lymph % (Auto) (16.0-40.0) % Forrest % (Auto) (0.0-15.0) % Eos % (Auto) (0.0-7.0) % Baso % (Auto) (0.0-1.5) % Neut # (Auto) (1.4-5.7) K/uL Lymph # (Auto) (0.6-2.4) K/uL Forrest # (Auto) (0.0-0.8) K/uL Eos # (Auto) (0.0-0.7) K/uL Baso # (Auto) (0.0-0.1) K/uL Nucleated RBC % /100WBC Nucleated RBCs # K/uL INR ABG pH (7.35-7.45) ABG pCO2 (35-45) mmHG ABG pO2 (75-100) mmHG ABG HCO3 (22-26) mEq/L ABG Total CO2 ABG Base Excess (-2.0-2.0) Sodium 126 L (136-148) mmol/L Potassium 5.4 H (3.5-5.1) mmol/L Chloride 91 L (98-107) mmol/L Carbon Dioxide 14.5 L (21.0-32.0) mmol/L BUN 33 H (7.0-18.0) mg/dL Creatinine 1.4 H (0.8-1.3) mg/dL Est Cr Clr Drug Dosing 74.21 mL/min Estimated GFR (MDRD) 53.9 ml/min Glucose 88 (74-106) mg/dL Calcium 8.4 L (8.5-10.1) mg/dL Phosphorus 3.7 (2.6-4.7) mg/dL Magnesium 2.0 (1.8-2.4) mg/dL Total Bilirubin 8.3 H (0.2-1.0) mg/dL AST 1467 H (15-37) IU/L ALT 288 H (14-63) IU/L Alkaline Phosphatase 137 H (46-116) U/L Ammonia <17 L (19-54) ug/dL Creatine Kinase 258 (26-308) U/L Total Protein 6.4 (6.4-8.2) g/dL Albumin 3.1 L (3.4-5.0) g/dL Globulin 3.3 (2.6-4.0) g/dL Albumin/Globulin Ratio 0.9 (0.9-1.6) Lipase 992 H (73-393) U/L Acetaminophen <2.0 ug/mL Hepatitis A IgM Ab (Negative) Hep Bs Antigen (Negative) Hep B Core IgM Ab (Negative) Hepatitis C Antibody (0.0-0.9) s/co ratio // Range/Units 20:21 WBC (4.0-11.0) K/uL RBC (4.50-5.90) M/uL Hgb (13.0-17.0) g/dL Hct (38.0-50.0) % MCV (80.0-98.0) fL MCH (27.0-32.0) pg MCHC (31.0-37.0) g/dL RDW Std Deviation (28.0-62.0) fl RDW Coeff of Nicholas (11.0-15.0) % Plt Count (150-400) K/uL MPV (7.40-12.00) fL Neut % (Auto) (48.0-80.0) % Lymph % (Auto) (16.0-40.0) % Forrest % (Auto) (0.0-15.0) % Eos % (Auto) (0.0-7.0) % Baso % (Auto) (0.0-1.5) % Neut # (Auto) (1.4-5.7) K/uL Lymph # (Auto) (0.6-2.4) K/uL Forrest # (Auto) (0.0-0.8) K/uL Eos # (Auto) (0.0-0.7) K/uL Baso # (Auto) (0.0-0.1) K/uL Nucleated RBC % /100WBC Nucleated RBCs # K/uL INR ABG pH 7.313 L (7.35-7.45) ABG pCO2 27 L (35-45) mmHG ABG pO2 100 (75-100) mmHG ABG HCO3 13 L (22-26) mEq/L ABG Total CO2 12.3 ABG Base Excess -11.1 L (-2.0-2.0) Sodium (136-148) mmol/L Potassium (3.5-5.1) mmol/L Chloride (98-107) mmol/L Carbon Dioxide (21.0-32.0) mmol/L BUN (7.0-18.0) mg/dL Creatinine (0.8-1.3) mg/dL Est Cr Clr Drug Dosing mL/min Estimated GFR (MDRD) ml/min Glucose (74-106) mg/dL Calcium (8.5-10.1) mg/dL Phosphorus (2.6-4.7) mg/dL Magnesium (1.8-2.4) mg/dL Total Bilirubin (0.2-1.0) mg/dL AST (15-37) IU/L ALT (14-63) IU/L Alkaline Phosphatase (46-116) U/L Ammonia (19-54) ug/dL Creatine Kinase (26-308) U/L Total Protein (6.4-8.2) g/dL Albumin (3.4-5.0) g/dL Globulin (2.6-4.0) g/dL Albumin/Globulin Ratio (0.9-1.6) Lipase (73-393) U/L Acetaminophen ug/mL Hepatitis A IgM Ab (Negative) Hep Bs Antigen (Negative) Hep B Core IgM Ab (Negative) Hepatitis C Antibody (0.0-0.9) s/co ratio Yasmany Results Last 24 Hours: Microbiology 01/27/20 16:05 Urine Culture - Final Urine, Clean Catch MIXED FLORENCIA 1,000-10,000 CFU/ML Med Orders - Current: Current Medications Albuterol/Ipratropium (Duoneb 3.0-0.5 Mg/3 Ml) 3 ml NEB Q4HRRT PRN PRN Reason: Shortness Of Breath/wheezing Last Admin: 01/27/20 05:56 Dose: 3 ml Documented by: Diazepam (Valium) 10 mg IVPUSH Q8H PRN PRN Reason: Agitation Last Admin: 01/29/20 22:17 Dose: 10 mg Documented by: Folic Acid (Folic Acid) 1 mg IV DAILY [facility] Last Admin: 01/29/20 08:30 Dose: 1 mg Documented by: Lactated Ringer's (Ringers, Lactated) 1,000 mls @ 125 mls/hr IV ASDIRECTED [facility] Last Admin: 01/29/20 22:19 Dose: 125 mls/hr Documented by: Pantoprazole Sodium 40 mg/ (Sodium Chloride) 10 mls @ 300 mls/hr IV BID [facility] Last Admin: 01/29/20 21:30 Dose: 300 mls/hr Documented by: Thiamine HCl 100 mg/ Sodium (Chloride) 101 mls @ 202 mls/hr IV DAILY [facility] Last Admin: 01/29/20 08:49 Dose: 202 mls/hr Documented by: Latanoprost (Xalatan 0.005% Ophth Soln) 0 ml EYEBOTH BEDTIME [facility] Last Admin: 01/29/20 22:20 Dose: Not Given Documented by: Lorazepam (Ativan) 0 mg IVPUSH Q4H PRN; Protocol PRN Reason: Withdrawal Symptoms Last Admin: 01/29/20 19:52 Dose: 1 mg Documented by: Methylprednisolone Sodium Succinate (Solu-Medrol) 32 mg IVPUSH DAILY [facility] Last Admin: 01/29/20 17:22 Dose: 32 mg Documented by: Morphine Sulfate (Morphine) 1 mg IVPUSH Q4H PRN PRN Reason: Pain (severe 7-10) Last Admin: 01/29/20 16:12 Dose: 1 mg Documented by: Ondansetron HCl (Zofran) 4 mg IVPUSH Q4H PRN PRN Reason: Nausea/Vomiting Last Admin: 01/27/20 04:24 Dose: 4 mg Documented by: Fluticasone/Salmeterol (Advair Diskus 250-50) 1 puff INH DAILY [facility] Last Admin: 01/29/20 09:12 Dose: Not Given Documented by: Discontinued Medications Albuterol/Ipratropium (Duoneb 3.0-0.5 Mg/3 Ml) 3 ml NEB ONETIME ONE Stop: 01/26/20 18:29 Last Admin: 01/26/20 18:42 Dose: 3 ml Documented by: Calcium Gluconate (Calcium Gluconate) 1 gm IVPUSH ONETIME ONE Stop: 01/27/20 10:50 Last Admin: 01/27/20 11:19 Dose: 1 gm Documented by: Dextrose/Water (Dextrose 50% In Water) 50 ml IVPUSH ONETIME ONE Stop: 01/26/20 19:03 Last Admin: 01/26/20 19:48 Dose: 50 ml Documented by: Diazepam (Valium.) 5 mg PO TID [facility] Last Admin: 01/29/20 07:16 Dose: Not Given Documented by: Diazepam (Valium) 5 mg IVPUSH Q8H PRN PRN Reason: Agitation Last Admin: 01/29/20 09:25 Dose: 5 mg Documented by: Diphenhydramine HCl (Benadryl) 50 mg IVPUSH ONETIME ONE Stop: 01/29/20 03:27 Last Admin: 01/29/20 03:33 Dose: 50 mg Documented by: Haloperidol Lactate (Haldol) 5 mg IM ONETIME ONE Stop: 01/29/20 03:23 Last Admin: 01/29/20 03:35 Dose: 5 mg Documented by: Multivitamins/Minerals 10 ml/Thiamine HCl 100 mg/ Folic Acid 1 mg/ Sodium Chloride 1,011.2 mls @ 200 mls/hr IV ONETIME ONE Stop: 01/27/20 00:35 Last Admin: 01/26/20 21:01 Dose: 200 mls/hr Documented by: Magnesium Sulfate 2 gm/ Premix 50 mls @ 50 mls/hr IV ONETIME ONE Stop: 01/27/20 08:49 Last Admin: 01/27/20 08:12 Dose: 50 mls/hr Documented by: Lactated Ringer's (Ringers, Lactated) 1,000 mls @ 999 mls/hr IV ASDIRECTED [facility] Stop: 01/27/20 12:01 Last Admin: 01/27/20 11:25 Dose: 999 mls/hr Documented by: Lactated Ringer's (Ringers, Lactated) 1,000 mls @ 999 mls/hr IV .BOLUS ONE Stop: 01/28/20 11:09 Last Admin: 01/28/20 10:48 Dose: 999 mls/hr Documented by: Ceftriaxone Sodium/Dextrose 1 (gm/ Premix) 50 mls @ 100 mls/hr IV ONETIME ONE Stop: 01/28/20 10:44 Last Admin: 01/28/20 10:48 Dose: 100 mls/hr Documented by: Lactated Ringer's (Ringers, Lactated) 500 mls @ 999 mls/hr IV .BOLUS ONE Stop: 01/28/20 16:45 Last Admin: 01/28/20 17:24 Dose: 999 mls/hr Documented by: Lactated Ringer's (Ringers, Lactated) 1,000 mls @ 999 mls/hr IV .BOLUS ONE Stop: 01/29/20 11:13 Last Admin: 01/29/20 10:20 Dose: 999 mls/hr Documented by: Albumin Human (Flexbumin 25%) 12.5 gm in 50 mls @ 100 mls/hr IV ONETIME ONE Stop: 01/29/20 12:26 Last Admin: 01/29/20 12:10 Dose: 100 mls/hr Documented by: Insulin Human Regular (Novolin R) 10 unit IVPUSH ONETIME ONE; Protocol Stop: 01/26/20 19:00 Last Admin: 01/26/20 19:47 Dose: 10 unit Documented by: Latanoprost (Xalatan 0.005% Oph Soln) 0 ml EYEBOTH BEDTIME HU Last Admin: 01/28/20 22:38 Dose: 1 drop Documented by: Lorazepam (Ativan) 4 mg IVPUSH ONETIME ONE Stop: 01/29/20 05:03 Last Admin: 01/29/20 05:14 Dose: 4 mg Documented by: Morphine Sulfate (Morphine) 1 mg IVPUSH Q4H PRN PRN Reason: Pain (severe 7-10) Stop: 01/27/20 19:23 Last Admin: 01/26/20 22:25 Dose: 1 mg Documented by: Sodium Bicarbonate (Sodium Bicarbonate 8.4%) 50 meq IVPUSH ONETIME ONE Stop: 01/26/20 19:03 Last Admin: 01/26/20 19:48 Dose: 50 meq Documented by: Sodium Phosphate (Neutra-Phos) 250 mg PO QID HU Stop: 01/29/20 06:01 Last Admin: 01/29/20 07:16 Dose: Not Given Documented by: Sepsis Event Note - Focused Exam Vital Signs: Vital Signs Temp Resp BP Pulse Ox 01/29/20 22:00 17 112/88 94 L 01/29/20 21:00 17 108/74 95 01/29/20 20:00 36.2 C 18 115/84 92 L 01/29/20 19:00 18 91/68 92 L 01/29/20 18:00 19 115/79 91 L 01/29/20 17:00 26 H 104/72 94 L 01/29/20 16:00 36.6 C 21 H 97/61 95 01/29/20 15:00 30 H 120/103 H 90 L 01/29/20 14:00 24 H 100/76 95 01/29/20 13:00 27 H 89/77 L 94 L 01/29/20 12:00 37.1 C 33 H 98/74 97 01/29/20 11:00 35 H 102/80 97 Date Exam was Performed: 01/29/20 Time Exam was Performed: 22:47 - Problem List & Annotations (1) Transaminitis SNOMED Code(s): 966207383, 725294514 Code(s): R74.0 - NONSPEC ELEV OF LEVELS OF TRANSAMNS & LACTIC ACID DEHYDRGNSE Status: Acute Current Visit: Yes (2) Alcohol abuse SNOMED Code(s): 40755727 Code(s): F10.10 - ALCOHOL ABUSE, UNCOMPLICATED Status: Acute Current Visit: Yes (3) Hyperkalemia SNOMED Code(s): 61109654 Code(s): E87.5 - HYPERKALEMIA Status: Acute Current Visit: Yes - My Orders Last 24 Hours: My Active Orders 01/29/20 05:37 Transfer Patient (Change bed) [ADT] Routine
[2020-01-29 16:33] LABS: ACETAMINOPHEN <2.0 ug/mL
[2020-01-29] MEDS: methylPREDNISolone Sodium Succinate 40 MG/1 ML SDV IVPUSH SCH (17:22)
[2020-01-29] MEDS ORDERED: Latanoprost 0.005% Ophth Soln 2.5 ML Bottle**OWN MED EYEBOTH SCH (21:00)
[2020-01-30] MEDS: LORazepam 2 MG/ML SDV IVPUSH PRN ×4 (01:05→10:43)
[2020-01-30] MEDS: Lactated Ringers 1,000 ML IV SCH (06:19)
[2020-01-30 07:53] LABS: CARBON DIOXIDE,CO2 14.9 mmol/L (21.0-32.0); POTASSIUM,K 6.4 mmol/L (3.5-5.1)
[2020-01-30] MEDS: methylPREDNISolone Sodium Succinate 40 MG/1 ML SDV IVPUSH SCH (09:17)
[2020-01-30] MEDS: Thiamine 100 MG in Sodium Chloride 0.9% 100 ML IV SCH (09:17)
[2020-01-30] MEDS: Pantoprazole 40 MG in Sodium Chloride 0.9% 10 ML IV SCH (09:17)
[2020-01-30] MEDS: Folic Acid 50 MG/10 ML MDV IV SCH (09:17)
[2020-01-30] MEDS: Fluticasone/Salmeterol 250-50 MCG Inhalation Powder 14/Diskus INH SCH (09:39)
--- NOTE | 2020-01-30 09:55 | PCM.DCSUM1 ---
<Edy Neri - Last Filed: 01/30/20 09:44> Discharge Summary - Hospital Course Free Text/Narrative:: 49-year-old male admitted for alcoholic hepatitis and alcohol withdrawal. He has a PMH of asthma and alcohol abuse. Patient has history of drinking "about a fifth" of alcohol daily for several years. On admission, AST 1922, ALT 299, lipase 613, INR 1.13. CXR negative and COVID19 test negative[address] abdomen showed severe fatty liver, possible colitis and left lung nodule. Abdominal ultrasound showed fatty liver. Patient started on IV fluids, IV PPI BID, IV thiamine and folic acid. For alcohol withdrawal he was started on PO valium and IV ativan prn CIWAA protocol. Patient was eventually transferred to ICU for closer monitoring for delirium tremens and was given IV valium and IV ativan prn. His alcohol withdrawal symptoms stabilized and he remained hemodynamically stable. For al coholic hepatitis, his liver enzymes and INR continued to increase. Acetaminophen level on admission normal. CK level normal. Several attempts were made to transfer patient to larger facility with gastroenterology on 01/29/20, however, all hospitals contacted in [facility] and [place], [place] had ICU at capacity. Title I Assistant Dr. Mcelroy at liver transplant center at [facility] contacted for recommendations. Dr. Mcelroy recommended transfer to facility with supervisor die casting as soon as possible, however, transfer to liver transplant center not required. Dr. Mcelroy also recommended giving patient albumin, vitamin K, and starting steroids and patient was started on IV solumedrol 32 mg qd. On 01/30/20 AST was 3329 and ALT 495, bilirubin 11.1 and INR 2.26. [facility] in [place], [place] was contacted and patient was accepted for transfer by Dr. Lynn ER physician. Patient discharged in stable condition via flight. - Discharge Data Discharge Date: 01/30/20 Discharge Disposition: DC/Tfer to Acute Hospital 02 Condition: Stable - Referral to Home Health Primary Care Physician: Fernanda Haskins NP - Patient Instructions Diet: Usual Diet as Tolerated Activity: As Tolerated Notify Provider of: Fever, Increased Pain, Swelling and Redness, Drainage, Nausea and/or Vomiting - Discharge Plan *PRESCRIPTION DRUG MONITORING PROGRAM REVIEWED*: Not Applicable *COPY OF PRESCRIPTION DRUG MONITORING REPORT IN PATIENT CLARIBEL: Not Applicable Home Medications: Home Meds Albuterol/Ipratropium [Combivent Respimat] 1 inh IH QID PRN 01/26/20 [History] Fluticasone Propion/Salmeterol [Advair 250-50 Diskus] 1 inh IH DAILY 01/26/20 [History] Latanoprost 1 drop EYEBOTH BEDTIME 01/27/20 [History] Levothyroxine Sodium [Levoxyl] 50 mcg PO DAILY 01/27/20 [History] Montelukast Sodium 10 mg PO DAILY 01/27/20 [History] Omeprazole 20 mg PO DAILY 01/27/20 [History] Pravastatin [Pravachol] 20 mg PO BEDTIME 01/27/20 [History] Oxygen Therapy Mode: Nasal Cannula Oxygen Flow Rate (L/min): 2 Referrals: Fernadna Haskins SCREW CUTTER [Primary Care Provider] - 02/22/20 2:15 pm - Discharge Summary/Plan Comment DC Time >30 min.: No - Patient Data Vitals - Most Recent: Last Vital Signs Temp 36.1 C 01/30/20 07:00 Pulse 119 H 01/29/20 04:00 Resp 30 H 01/30/20 09:00 BP 107/78 01/30/20 09:00 Pulse Ox 96 01/30/20 09:00 Weight - Most Recent: 111.9 kg I&O - Last 24 hours: Intake & Output 01/29/20 01/30/20 01/30/20 22:59 06:59 14:59 Intake Total 1185 1531 Output Total 125 0 Balance 1060 1531 Lab Results - Last 24 hrs: Laboratory Results - last 24 hr 01/29/20 01/29/20 01/29/20 Range/Units 05:37 10:38 20:21 WBC (4.0-11.0) K/uL RBC (4.50-5.90) M/uL Hgb (13.0-17.0) g/dL Hct (38.0-50.0) % MCV (80.0-98.0) fL MCH (27.0-32.0) pg MCHC (31.0-37.0) g/dL RDW Std Deviation (28.0-62.0) fl RDW Coeff of Nicholas (11.0-15.0) % Plt Count (150-400) K/uL MPV (7.40-12.00) fL Neut % (Auto) (48.0-80.0) % Lymph % (Auto) (16.0-40.0) % [place] % (Auto) (0.0-15.0) % Eos % (Auto) (0.0-7.0) % Baso % (Auto) (0.0-1.5) % Neut # (Auto) (1.4-5.7) K/uL Lymph # (Auto) (0.6-2.4) K/uL [place] # (Auto) (0.0-0.8) K/uL Eos # (Auto) (0.0-0.7) K/uL Baso # (Auto) (0.0-0.1) K/uL Nucleated RBC % /100WBC Nucleated RBCs # K/uL INR ABG pH 7.313 L (7.35-7.45) ABG pCO2 27 L (35-45) mmHG ABG pO2 100 (75-100) mmHG ABG HCO3 13 L (22-26) mEq/L ABG Total CO2 12.3 ABG Base Excess -11.1 L (-2.0-2.0) Sodium (136-148) mmol/L Potassium (3.5-5.1) mmol/L Chloride (98-107) mmol/L Carbon Dioxide (21.0-32.0) mmol/L BUN (7.0-18.0) mg/dL Creatinine (0.8-1.3) mg/dL Est Cr Clr Drug Dosing mL/min Estimated GFR (MDRD) ml/min Glucose (74-106) mg/dL Calcium (8.5-10.1) mg/dL Phosphorus (2.6-4.7) mg/dL Magnesium (1.8-2.4) mg/dL Total Bilirubin (0.2-1.0) mg/dL AST (15-37) IU/L ALT (14-63) IU/L Alkaline Phosphatase (46-116) U/L Ammonia <17 L (19-54) ug/dL Creatine Kinase 258 (26-308) U/L Total Protein (6.4-8.2) g/dL Albumin (3.4-5.0) g/dL Globulin (2.6-4.0) g/dL Albumin/Globulin Ratio (0.9-1.6) Lipase (73-393) U/L Acetaminophen <2.0 ug/mL 01/30/20 01/30/20 01/30/20 Range/Units 06:05 06:05 07:25 WBC 6.80 (4.0-11.0) K/uL RBC 3.93 L (4.50-5.90) M/uL Hgb 13.7 (13.0-17.0) g/dL Hct 41.7 (38.0-50.0) % MCV 106.1 H (80.0-98.0) fL MCH 34.9 H (27.0-32.0) pg MCHC 32.9 (31.0-37.0) g/dL RDW Std Deviation 59.8 (28.0-62.0) fl RDW Coeff of Nicholas 15 (11.0-15.0) % Plt Count 129 L (150-400) K/uL MPV 13.10 H (7.40-12.00) fL Neut % (Auto) 83.2 H (48.0-80.0) % Lymph % (Auto) 4.6 L (16.0-40.0) % [place] % (Auto) 12.1 (0.0-15.0) % Eos % (Auto) 0.0 (0.0-7.0) % Baso % (Auto) 0.1 (0.0-1.5) % Neut # (Auto) 5.7 (1.4-5.7) K/uL Lymph # (Auto) 0.3 L (0.6-2.4) K/uL [place] # (Auto) 0.8 (0.0-0.8) K/uL Eos # (Auto) 0.0 (0.0-0.7) K/uL Baso # (Auto) 0.0 (0.0-0.1) K/uL Nucleated RBC % 2.0 /100WBC Nucleated RBCs # 0 K/uL INR 2.26 ABG pH (7.35-7.45) ABG pCO2 (35-45) mmHG ABG pO2 (75-100) mmHG ABG HCO3 (22-26) mEq/L ABG Total CO2 ABG Base Excess (-2.0-2.0) Sodium 129 L (136-148) mmol/L Potassium 6.4 H (3.5-5.1) mmol/L Chloride 94 L (98-107) mmol/L Carbon Dioxide 14.9 L (21.0-32.0) mmol/L BUN 49 H (7.0-18.0) mg/dL Creatinine 1.6 H (0.8-1.3) mg/dL Est Cr Clr Drug Dosing 64.93 mL/min Estimated GFR (MDRD) 46.2 ml/min Glucose 97 (74-106) mg/dL Calcium 8.4 L (8.5-10.1) mg/dL Phosphorus 5.0 H (2.6-4.7) mg/dL Magnesium 2.1 (1.8-2.4) mg/dL Total Bilirubin 11.1 H (0.2-1.0) mg/dL AST 3329 H (15-37) IU/L ALT 495 H (14-63) IU/L Alkaline Phosphatase 136 H (46-116) U/L Ammonia (19-54) ug/dL Creatine Kinase (26-308) U/L Total Protein 6.1 L (6.4-8.2) g/dL Albumin 3.1 L (3.4-5.0) g/dL Globulin 3.0 (2.6-4.0) g/dL Albumin/Globulin Ratio 1.0 (0.9-1.6) Lipase 410 H (73-393) U/L Acetaminophen ug/mL TESSA Results - Last 24 hrs: Microbiology 01/27/20 16:05 Urine Culture - Final Urine, Clean Catch MIXED FLORENCIA 1,000-10,000 CFU/ML Med Orders - Current: Current Medications Albuterol/Ipratropium (Duoneb 3.0-0.5 Mg/3 Ml) 3 ml NEB Q4HRRT PRN PRN Reason: Shortness Of Breath/wheezing Last Admin: 01/27/20 05:56 Dose: 3 ml Documented by: Diazepam (Valium) 10 mg IVPUSH Q8H PRN PRN Reason: Agitation Last Admin: 01/30/20 06:14 Dose: 10 mg Documented by: Folic Acid (Folic Acid) 1 mg IV DAILY HU Last Admin: 01/30/20 09:17 Dose: 1 mg Documented by: Lactated Ringer's (Ringers, Lactated) 1,000 mls @ 125 mls/hr IV ASDIRECTED [facility] Last Admin: 01/30/20 06:19 Dose: 125 mls/hr Documented by: Pantoprazole Sodium 40 mg/ (Sodium Chloride) 10 mls @ 300 mls/hr IV BID [facility] Last Admin: 01/30/20 09:17 Dose: 300 mls/hr Documented by: Thiamine HCl 100 mg/ Sodium (Chloride) 101 mls @ 202 mls/hr IV DAILY [facility] Last Admin: 01/30/20 09:17 Dose: 202 mls/hr Documented by: Latanoprost (Xalatan 0.005% Ophth Soln) 0 ml EYEBOTH BEDTIME [facility] Last Admin: 01/29/20 22:20 Dose: Not Given Documented by: Lorazepam (Ativan) 0 mg IVPUSH Q4H PRN; Protocol PRN Reason: Withdrawal Symptoms Last Admin: 01/30/20 07:45 Dose: 2 mg Documented by: Methylprednisolone Sodium Succinate (Solu-Medrol) 32 mg IVPUSH DAILY [facility] Last Admin: 01/30/20 09:17 Dose: 32 mg Documented by: Morphine Sulfate (Morphine) 1 mg IVPUSH Q4H PRN PRN Reason: Pain (severe 7-10) Last Admin: 01/29/20 16:12 Dose: 1 mg Documented by: Ondansetron HCl (Zofran) 4 mg IVPUSH Q4H PRN PRN Reason: Nausea/Vomiting Last Admin: 01/27/20 04:24 Dose: 4 mg Documented by: Fluticasone/Salmeterol (Advair Diskus 250-50) 1 puff INH DAILY [facility] Last Admin: 01/30/20 09:39 Dose: Not Given Documented by: Discontinued Medications Albuterol/Ipratropium (Duoneb 3.0-0.5 Mg/3 Ml) 3 ml NEB ONETIME ONE Stop: 01/26/20 18:29 Last Admin: 01/26/20 18:42 Dose: 3 ml Documented by: Calcium Gluconate (Calcium Gluconate) 1 gm IVPUSH ONETIME ONE Stop: 01/27/20 10:50 Last Admin: 01/27/20 11:19 Dose: 1 gm Documented by: Dextrose/Water (Dextrose 50% In Water) 50 ml IVPUSH ONETIME ONE Stop: 01/26/20 19:03 Last Admin: 01/26/20 19:48 Dose: 50 ml Documented by: Diazepam (Valium.) 5 mg PO TID [facility] Last Admin: 01/29/20 07:16 Dose: Not Given Documented by: Diazepam (Valium) 5 mg IVPUSH Q8H PRN PRN Reason: Agitation Last Admin: 01/29/20 09:25 Dose: 5 mg Documented by: Diphenhydramine HCl (Benadryl) 50 mg IVPUSH ONETIME ONE Stop: 01/29/20 03:27 Last Admin: 01/29/20 03:33 Dose: 50 mg Documented by: Haloperidol Lactate (Haldol) 5 mg IM ONETIME ONE Stop: 01/29/20 03:23 Last Admin: 01/29/20 03:35 Dose: 5 mg Documented by: Multivitamins/Minerals 10 ml/Thiamine HCl 100 mg/ Folic Acid 1 mg/ Sodium Chloride 1,011.2 mls @ 200 mls/hr IV ONETIME ONE Stop: 01/27/20 00:35 Last Admin: 01/26/20 21:01 Dose: 200 mls/hr Documented by: Magnesium Sulfate 2 gm/ Premix 50 mls @ 50 mls/hr IV ONETIME ONE Stop: 01/27/20 08:49 Last Admin: 01/27/20 08:12 Dose: 50 mls/hr Documented by: Lactated Ringer's (Ringers, Lactated) 1,000 mls @ 999 mls/hr IV ASDIRECTED [facility] Stop: 01/27/20 12:01 Last Admin: 01/27/20 11:25 Dose: 999 mls/hr Documented by: Lactated Ringer's (Ringers, Lactated) 1,000 mls @ 999 mls/hr IV .BOLUS ONE Stop: 01/28/20 11:09 Last Admin: 01/28/20 10:48 Dose: 999 mls/hr Documented by: Ceftriaxone Sodium/Dextrose 1 (gm/ Premix) 50 mls @ 100 mls/hr IV ONETIME ONE Stop: 01/28/20 10:44 Last Admin: 01/28/20 10:48 Dose: 100 mls/hr Documented by: Lactated Ringer's (Ringers, Lactated) 500 mls @ 999 mls/hr IV .BOLUS ONE Stop: 01/28/20 16:45 Last Admin: 01/28/20 17:24 Dose: 999 mls/hr Documented by: Lactated Ringer's (Ringers, Lactated) 1,000 mls @ 999 mls/hr IV .BOLUS ONE Stop: 01/29/20 11:13 Last Admin: 01/29/20 10:20 Dose: 999 mls/hr Documented by: Albumin Human (Flexbumin 25%) 12.5 gm in 50 mls @ 100 mls/hr IV ONETIME ONE Stop: 01/29/20 12:26 Last Admin: 01/29/20 12:10 Dose: 100 mls/hr Documented by: Insulin Human Regular (Novolin R) 10 unit IVPUSH ONETIME ONE; Protocol Stop: 01/26/20 19:00 Last Admin: 01/26/20 19:47 Dose: 10 unit Documented by: Latanoprost (Xalatan 0.005% Ophth Soln) 0 ml EYEBOTH BEDTIME HU Last Admin: 01/28/20 22:38 Dose: 1 drop Documented by: Lorazepam (Ativan) 4 mg IVPUSH ONETIME ONE Stop: 01/29/20 05:03 Last Admin: 01/29/20 05:14 Dose: 4 mg Documented by: Morphine Sulfate (Morphine) 1 mg IVPUSH Q4H PRN PRN Reason: Pain (severe 7-10) Stop: 01/27/20 19:23 Last Admin: 01/26/20 22:25 Dose: 1 mg Documented by: Sodium Bicarbonate (Sodium Bicarbonate 8.4%) 50 meq IVPUSH ONETIME ONE Stop: 01/26/20 19:03 Last Admin: 01/26/20 19:48 Dose: 50 meq Documented by: Sodium Phosphate (Neutra-Phos) 250 mg PO QID HU Stop: 01/29/20 06:01 Last Admin: 01/29/20 07:16 Dose: Not Given Documented by: <Brittanie Irving - Last Filed: 02/01/20 19:13> Discharge Summary - Hospital Course Free Text/Narrative:: I have seen and evaluated the patient and agree with the residents note unless specified in my note - Referral to Home Health Primary Care Physician: Fernanda Haskins NP - Discharge Diagnosis/Problem(s) (1) Transaminitis SNOMED Code(s): 870697884, 745022654 ICD Code: R74.0 - NONSPEC ELEV OF LEVELS OF TRANSAMNS & LACTIC ACID DEHYDRGNSE Status: Acute (2) Alcohol abuse SNOMED Code(s): 13724759 ICD Code: F10.10 - ALCOHOL ABUSE, UNCOMPLICATED Status: Acute (3) Hyperkalemia SNOMED Code(s): 36511339 ICD Code: E87.5 - HYPERKALEMIA Status: Acute - Patient Data Vitals - Most Recent: Last Vital Signs Temp 37.2 C 01/30/20 10:00 Pulse 119 H 01/29/20 04:00 Resp 26 H 01/30/20 10:00 BP 112/82 01/30/20 10:00 Pulse Ox 91 L 01/30/20 10:00 Med Orders - Current: Current Medications Discontinued Medications Albuterol/Ipratropium (Duoneb 3.0-0.5 Mg/3 Ml) 3 ml NEB ONETIME ONE Stop: 01/26/20 18:29 Last Admin: 01/26/20 18:42 Dose: 3 ml Documented by: Albuterol/Ipratropium (Duoneb 3.0-0.5 Mg/3 Ml) 3 ml NEB Q4HRRT PRN PRN Reason: Shortness Of Breath/wheezing Last Admin: 01/27/20 05:56 Dose: 3 ml Documented by: Calcium Gluconate (Calcium Gluconate) 1 gm IVPUSH ONETIME ONE Stop: 01/27/20 10:50 Last Admin: 01/27/20 11:19 Dose: 1 gm Documented by: Calcium Gluconate (Calcium Gluconate) 1 gm IVPUSH ONETIME ONE Stop: 01/30/20 10:16 Last Admin: 01/30/20 10:29 Dose: 1 gm Documented by: Dextrose/Water (Dextrose 50% In Water) 50 ml IVPUSH ONETIME ONE Stop: 01/26/20 19:03 Last Admin: 01/26/20 19:48 Dose: 50 ml Documented by: Dextrose/Water (Dextrose 50% In Water) 50 ml IVPUSH ONETIME ONE Stop: 01/30/20 10:16 Last Admin: 01/30/20 10:30 Dose: 50 ml Documented by: Diazepam (Valium.) 5 mg PO TID [facility] Last Admin: 01/29/20 07:16 Dose: Not Given Documented by: Diazepam (Valium) 5 mg IVPUSH Q8H PRN PRN Reason: Agitation Last Admin: 01/29/20 09:25 Dose: 5 mg Documented by: Diazepam (Valium) 10 mg IVPUSH Q8H PRN PRN Reason: Agitation Last Admin: 01/30/20 06:14 Dose: 10 mg Documented by: Diphenhydramine HCl (Benadryl) 50 mg IVPUSH ONETIME ONE Stop: 01/29/20 03:27 Last Admin: 01/29/20 03:33 Dose: 50 mg Documented by: Folic Acid (Folic Acid) 1 mg IV DAILY [facility] Last Admin: 01/30/20 09:17 Dose: 1 mg Documented by: Haloperidol Lactate (Haldol) 5 mg IM ONETIME ONE Stop: 01/29/20 03:23 Last Admin: 01/29/20 03:35 Dose: 5 mg Documented by: Lactated Ringer's (Ringers, Lactated) 1,000 mls @ 125 mls/hr IV ASDIRECTED [facility] Last Admin: 01/30/20 06:19 Dose: 125 mls/hr Documented by: Pantoprazole Sodium 40 mg/ (Sodium Chloride) 10 mls @ 300 mls/hr IV BID [facility] Last Admin: 01/30/20 09:17 Dose: 300 mls/hr Documented by: Multivitamins/Minerals 10 ml/Thiamine HCl 100 mg/ Folic Acid 1 mg/ Sodium Chloride 1,011.2 mls @ 200 mls/hr IV ONETIME ONE Stop: 01/27/20 00:35 Last Admin: 01/26/20 21:01 Dose: 200 mls/hr Documented by: Thiamine HCl 100 mg/ Sodium (Chloride) 101 mls @ 202 mls/hr IV DAILY [facility] Last Admin: 01/30/20 09:17 Dose: 202 mls/hr Documented by: Magnesium Sulfate 2 gm/ Premix 50 mls @ 50 mls/hr IV ONETIME ONE Stop: 01/27/20 08:49 Last Admin: 01/27/20 08:12 Dose: 50 mls/hr Documented by: Lactated Ringer's (Ringers, Lactated) 1,000 mls @ 999 mls/hr IV ASDIRECTED [facility] Stop: 01/27/20 12:01 Last Admin: 01/27/20 11:25 Dose: 999 mls/hr Documented by: Lactated Ringer's (Ringers, Lactated) 1,000 mls @ 999 mls/hr IV .BOLUS ONE Stop: 01/28/20 11:09 Last Admin: 01/28/20 10:48 Dose: 999 mls/hr Documented by: Ceftriaxone Sodium/Dextrose 1 (gm/ Premix) 50 mls @ 100 mls/hr IV ONETIME ONE Stop: 01/28/20 10:44 Last Admin: 01/28/20 10:48 Dose: 100 mls/hr Documented by: Lactated Ringer's (Ringers, Lactated) 500 mls @ 999 mls/hr IV .BOLUS ONE Stop: 01/28/20 16:45 Last Admin: 01/28/20 17:24 Dose: 999 mls/hr Documented by: Lactated Ringer's (Ringers, Lactated) 1,000 mls @ 999 mls/hr IV .BOLUS ONE Stop: 01/29/20 11:13 Last Admin: 01/29/20 10:20 Dose: 999 mls/hr Documented by: Albumin Human (Flexbumin 25%) 12.5 gm in 50 mls @ 100 mls/hr IV ONETIME ONE Stop: 01/29/20 12:26 Last Admin: 01/29/20 12:10 Dose: 100 mls/hr Documented by: Phytonadione 10 mg/ Sodium (Chloride) 51 mls @ 100 mls/hr IV NOW STA Stop: 01/30/20 10:28 Last Admin: 01/30/20 10:26 Dose: 100 mls/hr Documented by: Albumin Human 12.5 gm/ Premix 50 mls @ 100 mls/hr IV ASDIRECTED [facility] Stop: 02/06/20 10:59 Insulin Human Regular (Novolin R) 10 unit IVPUSH ONETIME ONE; Protocol Stop: 01/26/20 19:00 Last Admin: 01/26/20 19:47 Dose: 10 unit Documented by: Insulin Human Regular (Novolin R) 10 unit IVPUSH ONETIME ONE; Protocol Stop: 01/30/20 10:15 Last Admin: 01/30/20 10:27 Dose: 10 units Documented by: Latanoprost (Xalatan 0.005% Ophth Soln) 0 ml EYEBOTH BEDTIME [facility] Last Admin: 01/28/20 22:38 Dose: 1 drop Documented by: Latanoprost (Xalatan 0.005% Ophth Soln) 0 ml EYEBOTH BEDTIME [facility] Last Admin: 01/29/20 22:20 Dose: Not Given Documented by: Lorazepam (Ativan) 0 mg IVPUSH Q4H PRN; Protocol PRN Reason: Withdrawal Symptoms Last Admin: 01/30/20 10:43 Dose: 2 mg Documented by: Lorazepam (Ativan) 4 mg IVPUSH ONETIME ONE Stop: 01/29/20 05:03 Last Admin: 01/29/20 05:14 Dose: 4 mg Documented by: Methylprednisolone Sodium Succinate (Solu-Medrol) 32 mg IVPUSH DAILY [facility] Last Admin: 01/30/20 09:17 Dose: 32 mg Documented by: Morphine Sulfate (Morphine) 1 mg IVPUSH Q4H PRN PRN Reason: Pain (severe 7-10) Stop: 01/27/20 19:23 Last Admin: 01/26/20 22:25 Dose: 1 mg Documented by: Morphine Sulfate (Morphine) 1 mg IVPUSH Q4H PRN PRN Reason: Pain (severe 7-10) Last Admin: 01/29/20 16:12 Dose: 1 mg Documented by: Ondansetron HCl (Zofran) 4 mg IVPUSH Q4H PRN PRN Reason: Nausea/Vomiting Last Admin: 01/27/20 04:24 Dose: 4 mg Documented by: Fluticasone/Salmeterol (Advair Diskus 250-50) 1 puff INH DAILY [facility] Last Admin: 01/30/20 09:39 Dose: Not Given Documented by: Sodium Bicarbonate (Sodium Bicarbonate 8.4%) 50 meq IVPUSH ONETIME ONE Stop: 01/26/20 19:03 Last Admin: 01/26/20 19:48 Dose: 50 meq Documented by: Sodium Bicarbonate (Sodium Bicarbonate 8.4%) 100 meq IV ONETIME ONE Stop: 01/30/20 10:46 Last Admin: 01/30/20 11:13 Dose: 100 meq Documented by: Sodium Phosphate (Neutra-Phos) 250 mg PO QID [facility] Stop: 01/29/20 06:01 Last Admin: 01/29/20 07:16 Dose: Not Given Documented by:
[2020-01-30] MEDS ORDERED: Phytonadione 10 MG in Sodium Chloride 0.9% 50 ML IV STA (09:58)
[2020-01-30] MEDS ORDERED: Insulin Regular, Human 100 Units/ML 10 ML Vial IVPUSH ONE (10:14)
[2020-01-30] MEDS ORDERED: Calcium Gluconate 10% 1 GM/10 ML SDV IVPUSH ONE (10:15)
[2020-01-30] MEDS ORDERED: 50% Dextrose in Water 50 ML Syringe IVPUSH ONE (10:15)
[2020-01-30] MEDS ORDERED: Sodium Bicarbonate 100 MEQ in Dextrose 5% in Water 100 ML IV ONE ×2 (10:19)
[2020-01-30] MEDS ORDERED: Albumin 25% 12.5 GM in Premix Bag 1 BAG IV SCH (10:30)
[2020-01-30] MEDS ORDERED: Sodium Bicarbonate 8.4% 50 MEQ/50 ML SDV IV ONE (10:45)
--- NOTE | 2020-01-30 10:47 | PN ---
THC Physician - Brief Progress PpaxQTLKOFFLS25/08/2020 10:44[facility] Joel Zuniga, [place] - DURAN (HOMAR) - DURAN OG FRANKLINShivaDate of Service 01/30/2020 10:44HPI/Events o f Note Patient was seen in the on, and the case was discussed with the bedside nurse and the bedside physician.Patient is still confusedPatient is protecting airwaysPatient is requiring Ativan as needed for his alcohol withdrawalPatient has just received 2 mg of AtivanLiver enzymes continues to go up a nd potassium is 6.4Patient has acute kidney injury with creatinine of 1.4Patient has acute alcoholic hepatitisImpression:Patient will continue on Solu-Medrol 40 mg dailyPatient was started on bicarb dri p for his metabolic acidosisTry to reverse his potassium with 10 units of insulin and 1 amp of bicarb Recheck potassium in 2 hoursPatient will be transferred to [facility] CenterInter[facility] Major-Delirium, psychosis, severe agitation - evaluation and managementMinor-Clinical assessment - ordering diagnosti c tests
== END 2020-01-30 11:08 | DRG 433 ==
LOC: MW.ED 17:17 → MW.MS 19:14 → OBSVTOIN 01-28 10:08 → MW.MS 01-28 13:30 → MW.ICU 01-29 04:50
PROVIDERS: ADMIT Student in an Organized Health Care Education/Training Program; ATTEND Student in an Organized Health Care Education/Training Program
DX: K70.10 Alcoholic hepatitis without ascites (principal); F10.231 Alcohol dependence with withdrawal delirium; N17.9 Acute kidney failure, unspecified; E87.2 Acidosis; Z20.828 Contact with and (suspected) exposure to other viral communicable diseases; J45.909 Unspecified asthma, uncomplicated; Z79.890 Hormone replacement therapy; Z79.899 Other long term (current) drug therapy; E87.5 Hyperkalemia
CPT/HCPCS: 36410; 36415; 36600; 51798; 71046; 71046-26; 74176; 74176-26; 76705; 76705-26; 80048; 80053; 80074; 80307; 81001; 82140; 82150; 82550; 82803; 82962; 83690; 83735; 84100; 84443; 85025; 85610; 87086; 93005; 94640; 96365; 96366; 96374; 96375; 96376; 99283; 99285-25; A9270-GY; C9113; G0378; J0610; J0696; J1200; J1630; J1815-GY; J2060; J2270; J2405; J2920; J3360; J3411; J3430; J3475; J7030; J7050; J7120; J7620-GY; P9047; U0002